=== PATIENT | female | born 1955 | race Caucasian/White ===

== ENCOUNTER 2022-01-30 12:56 | Outpatient (CLI) | payer BC, SELFPAY ==
--- NOTE | 2022-01-30 13:00 | CRLHL7_ITS ---
For Patients: As a result of the 21st Century Cures Act, medical imaging exams and procedure reports are released immediately into your electronic medical record. You may view this report before your referring provider. If you have questions, please contact your health care provider. DUPLEX ULTRASOUND VENOUS INSUFFICIENCY BILATERAL LOWER EXTREMITIES, 01/30/2022 CLINICAL HISTORY: 66-year-old female with varicose veins. COMPARISON: None. TECHNIQUE: Olvera-scale and color spectral Doppler ultrasound imaging of the bilateral lower extremity deep and superficial venous system was performed. FINDINGS: The bilateral deep venous system, including the common femoral, femoral, and popliteal veins are patent and compressible with normal respiratory variation and no filling defect to suggest thrombus. The bilateral posterior tibial veins are patent and compressible as well. Right Lower Extremity: The deep venous system is competent. The greater saphenous vein is patent and compressible from the saphenofemoral junction to the distal calf. The diameters range from 3 mm in the distal thigh to 6 mm at the saphenofemoral junction. The diameters were not obtained in the mid or distal calf. There is very mild reflux at the saphenofemoral junction for 0.8 seconds. In the proximal calf, there is reflux for 2.4 seconds with augmentation. The small saphenous vein is patent and compressible along its length. In the proximal calf, it measures 7 mm. There is no reflux. Perforating veins are noted in the mid calf and measures less than 1 mm in diameter. In the mid femoral vein, it measures 0.1 mm and there is very mild reflux for 0.6 seconds. A second perforating vein in the mid thigh measures 0.1 mm and is competent. A predominantly hypoechoic palpable mass is noted in the medial aspect of the right upper thigh and measures 1.3 x 1.1 x 1.7 cm. Left Lower Extremity: The deep venous system is competent. The greater saphenous vein is patent and compressible along its length. The diameters range from 3 mm in the proximal calf to 7 mm at the saphenofemoral junction. It was not measured in the mid or distal calf. There is reflux at the saphenofemoral junction for 0.6 seconds. The remainder of the greater saphenous vein is competent. The small saphenous vein measures 4 mm in the proximal calf and has reflux for 0.5 seconds. It was not measured in the mid calf, but that vessel is competent. There are two perforating veins noted in the mid left thigh measuring 0.2 to 0.3 mm. Both appear competent. IMPRESSION: 1) Right Lower Extremity: Competent deep venous system. Segmental incompetence in the greater saphenous vein in the proximal calf. 2) Left Lower Extremity: Competent deep venous system. There is reflux of the saphenofemoral junction, but the remainder of the greater saphenous vein appeared competent. Segmental incompetence of the small saphenous vein in the proximal calf. 3) No deep venous thrombus in the bilateral lower extremities. 4) 1.3 x 1.1 x 1.7 round, well-demarcated, hypoechoic mass in the proximal medial thigh, correlating with the palpable lump. The differential diagnosis is broad and includes benign and malignant lesions. MR without and with IV contrast could be considered if further evaluation is desired. MOISE ROWELL M.D. Vascular and Interventional Radiology [email or web address] Transcribed: 10:[address]/Dictated by: Moise Rowell MD @ 01/31/2022 9:53:00 AM (Electronically Signed)
== END 2022-01-30 12:57 | disposition home or self-care (01) ==
LOC: US 12:56
PROVIDERS: PCP Family Medicine; Visit Provider Family Medicine
DX: I83.93 Asymptomatic varicose veins of bilateral lower extremities (principal); R22.41 Localized swelling, mass and lump, right lower limb
CPT/HCPCS: 93970

== ENCOUNTER 2022-05-19 11:35 | Emergency (ER) | payer BC, SELFPAY ==
[2022-05-19 11:47] VITALS: BP 116/79; PULSE 113; RESP 26; TEMP 36.2; O2SAT 94; BMI 31.0
--- NOTE | 2022-05-19 14:08 | ED.SOB ---
HPI - SOB/Dyspnea General Time Seen by Provider: 14:08 Date Seen: 05/19/22 Chief Complaint: Shortness of Breath/Dyspnea Stated Complaint: Difficulty breathing Time Seen by Provider: 05/19/22 14:11 Source: patient, RN notes reviewed and old records reviewed Mode of arrival: ambulatory Limitations: no limitations History of Present Illness HPI Narrative: Sherri Gutierrez is a 66-year-old female with history of COPD who comes to the emergency room for coughing and some shortness of breath. Patient notes the onset of coughing on ThursdayMay 16. With that she has had decreased appetite fevers that have come and gone and fatigue. Patient notes that she has been using Tylenol as well as trying to stay hydrated. In regards to her COPD she did quit smoking 6 years ago and has had need for inhalers and occasional prednisone. She denies any chest pain lower extremity edema history of DVT. Her was recently diagnosed with influenza. She is in agreement to get the triple swab today as well as a chest x-ray. Related Data Home Medications Medication Instructions Recorded Confirmed albuterol sulfate 90 mcg/actuation 2 puff inhalation Q2-4H PRN 01/08/22 05/19/22 aerosol inhaler shortness of breath or wheezing cetirizine 10 mg tablet 10 mg PO .Daily as needed PRN 01/08/22 05/19/22 fluticasone fur. 100 mcg-umeclid 1 inh inhalation DAILY 01/08/22 05/19/22 62.5 mcg-vilant 25 mcg inhalat.powder fluticasone propionate 50 1 spray intranasal .Daily as 01/08/22 05/19/22 mcg/actuation nasal needed PRN spray,suspension multivitamin 1 tab PO QDAY 01/08/22 05/19/22 Previous Rx's Medication Instructions Recorded albuterol sulfate 90 mcg/actuation 1 inh inhalation QID PRN shortness 05/19/22 aerosol inhaler of breath or wheezing #8.5 grams azithromycin 250 mg tablet 250 mg PO DAILY #6 tabs 05/19/22 (Zithromax Z-Panchito) cefdinir 300 mg capsule 300 mg PO BID #14 caps 05/19/22 prednisone 20 mg tablet 20 mg PO DAILY #5 tabs 05/19/22 Allergies Allergy/AdvReac Type Severity Reaction Status Date / Time Penicillins Allergy Mild Familial Verified 05/19/22 11:53 anaphylactic reaction Review of Systems Status of ROS: Reports: 10 or more systems reviewed and unremarkable except as noted in History and below Const: Reports: fever and fatigue; Denies: chills Eyes: Denies: change in vision ENMT: Denies: throat pain, throat swelling or difficulty swallowing Cardio: Reports: shortness of breath with exertion (Occasional with walking); Denies: chest pain or swelling of feet/ankles Resp: Reports: shortness of breath (Occasional with walking), cough and wheezing; Denies: pain on inspiration GI: Reports: diarrhea (Small amount starting yesterday); Denies: abdominal pain, nausea, vomiting or difficulty swallowing : Denies: painful urination Integ/Breast: Denies: rash or redness Neuro: Denies: headache or weakness in extremities Endo: Reports: fatigue Allergy/Immuno: Reports: wheezing; Denies: throat swelling PFSH PFSH Medical History Allergic rhinitis Cognitive deficit following cerebrovascular accident (CVA) Depression Hemorrhage into subarachnoid space of neuraxis (2016) Insomnia Moderate COPD (chronic obstructive pulmonary disease) (2019) Short of breath on exertion Surgical History History of cerebral aneurysm repair (2015) History of cholecystectomy History of eye surgery (1958) Status post ventriculoperitoneal shunt (2015) Family History Father Basal cell carcinoma Coronary artery disease Pacemaker Mother Basal cell carcinoma Aunt Breast cancer Other Colonic polyp Social History Narrative: Does not have regular exercise regimen but walks a lot at work Ex-smoker. 40 pack year, quit 2016 Rarely consumes alcohol [employer], [employer] [place], no kids Smoking Status: Former smoker Little interest or pleasure in doing things: not at all Feeling down, depressed, or hopeless: several days Exam Narrative: Exam Narrative: Sherri is a very pleasant woman in no acute distress. She is clearly congested but nontoxic in appearance. Right eye deviation laterally. Otherwise no scleral icterus. TMs without erythema. Oral cavity is moist mucous membranes no erythema exudate in posterior oropharynx Neck is supple without lymphadenopathy. Heart is with regular rate and rhythm at this time although I do note initial tachycardia. Lungs show some wheezing in the upper lung apices right greater than left. No significant crackles. Abdomen soft nontender lower extremities without edema. Const: Vital Signs, click to edit/add: Vital Signs - 24 hr 05/19/22 11:47 05/19/22 14:20 05/19/22 15:19 Temperature 97.1 F L Pulse Rate [Right Pulse Oximeter] 113 H 111 H 110 H Respiratory Rate 26 H Blood Pressure [Ri ght Upper Arm] 116/79 Pulse Oximetry 94 91 93 Oxygen Delivery Me thod Room Air Room Air Room Air 05/19/22 15:54 05/19/22 17:06 Temperature Pulse Rate [Right Pulse Oximeter] 118 H 111 H Respiratory Rate Blood Pressure [Ri ght Upper Arm] Pulse Oximetry 95 93 Oxygen Delivery Me thod Room Air Room Air Documenting provider has reviewed patient's vital signs: yes Course Course Hospital Course: Patient has agreed to the triple swab and a chest x-ray. Will also start a DuoNeb while in the room. Most likely represents an upper respiratory infection Vital Signs Vital signs: Initial Vital Signs Temperature 97.1 F L 05/19/22 11:47 Temperature Source Temporal Artery Scan 05/19/22 11:47 Pulse Rate 113 H 05/19/22 11:47 Respiratory Rate 26 H 05/19/22 11:47 Blood Pressure 116/79 05/19/22 11:47 Blood Pressure Mean 91 05/19/22 11:47 Blood Pressure Position Sitting 05/19/22 11:47 Pulse Oximetry 94 05/19/22 11:47 Oxygen Delivery Method 05/19/22 11:47 Vital Signs Temperature 97.1 F L 05/19/22 11:47 Pulse Rate 113 H 05/19/22 11:47 Respiratory Rate 26 H 05/19/22 11:47 Blood Pressure 116/79 05/19/22 11:47 Pulse Oximetry 94 05/19/22 11:47 Oxygen Delivery Method 05/19/22 11:47 Temperature 97.1 F L 05/19/22 11:47 Pulse Rate 111 H 05/19/22 17:06 Respiratory Rate 26 H 05/19/22 11:47 Blood Pressure 116/79 05/19/22 11:47 Pulse Oximetry 93 05/19/22 17:06 Oxygen Delivery Method 05/19/22 17:06 MDM - SOB/Dyspnea MDM Narrative Medical decision making narrative: 1. Influenza a-oxygenating well at this time. Would recommend continued monitoring. Ibuprofen or Tylenol as needed for discomfort. Patient feels that the DuoNeb seemed to help her but she declines any DuoNeb at home. She does however request albuterol inhaler which we have given her tonight. 2. Left chest mass -this could represent tumor versus infection. Will place patient both on Zithromax 500 mg today followed by 250 mg daily for 4 days as well as Omnicef 300 mg p.o. b.i.d. x7 days. I did stress to Sherri it is imperative that she follow up for a CT. She declines a CT here in the emergency room tonight. 3. COPD exacerbation-will also place patient on prednisone 20 mg p.o. b.i.d. x5 days. 4. Disposition-patient is discharged home. Recommend returning or seeking medical attention for worsening symptoms and as needed. Medical Records Attestation: I reviewed the patient's medical records. Lab Data Attestation: I reviewed the patient's lab results. Labs: Lab Results 05/19/22 Range/Units 14:33 SARS-CoV-2 (PCR) Negative SARS-CoV-2 (Negative) Influenza Type A (PCR) POSITIVE PCR FLU A A (Negative) Influenza Type B (PCR) Negative PCR FLU B (Negative) RSV (PCR) Negative PCR RSV (Negative) Imaging Data Chest x-ray: Attestation: I have reviewed the pertinent imaging results. My impression: Large mass left lung field Radiologist's impression: Lungs: New opacity overlies the mid left lung and measures approximately 5.8 cm. The right lung is clear. Pleura: No pleural effusion or pneumothorax. Heart and Mediastinum: The cardiomediastinal silhouette is normal. The vessels are unremarkable. Tubing tracking down the left chest wall is stable and likely a NURSE COLLEGE shunt. Bones: Unremarkable. IMPRESSION: Left midlung opacity could be focal infection, but underlying mass is also possible. Further evaluation with CT of the chest with contrast is recommended. Discharge Plan Discharge Clinical Impression: Influenza A, Lung mass, COPD (chronic obstructive pulmonary disease) Patient Disposition: Home, Self-Care Condition: Improved Additional Instructions: Influenza a-push fluids and use ibuprofen or Tylenol as needed for fever or discomfort. Lung mass-while this could represent an infection and we will be treating you with antibiotics, you need to follow-up with your primary MD in order to get a chest CT. This should be done with contrast. Antibiotics will be Zithromax and Omnicef. We will also add prednisone and inhaler. Return to the emergency room if you started experiencing difficulty breathing, cannot take fluids, or have onset of new symptoms. Prescriptions: New albuterol sulfate 90 mcg/actuation HFA aerosol inhaler 1 inh inhalation QID PRN (Reason: shortness of breath or wheezing) Qty: 8.5 2RF azithromycin [Zithromax Z-Panchito] 250 mg tablet 250 mg PO DAILY Qty: 6 0RF Rx Instructions: Take 2 tabs or 500 mg on day 1. On days 2 through 5 take 1 tablet or 250 mg daily. prednisone 20 mg tablet 20 mg PO DAILY Qty: 5 0RF cefdinir 300 mg capsule 300 mg PO BID Qty: 14 0RF No Action fluticasone propionate 50 mcg/actuation spray,suspension 1 spray intranasal .Daily as needed PRN multivitamin Tablet 1 tab PO QDAY cetirizine 10 mg tablet 10 mg PO .Daily as needed PRN albuterol sulfate 90 mcg/actuation HFA aerosol inhaler 2 puff inhalation Q2-4H PRN (Reason: shortness of breath or wheezing) [id number]-rcytfobw 100-62.5-25 mcg blister with device 1 inh inhalation DAILY Follow Up/Referrals: Cheryl Harrison MD [Primary Care Provider] - Stand Alone Forms: [employer] Info Instructions
[2022-05-19 14:20] VITALS: PULSE 111; O2SAT 91
--- NOTE | 2022-05-19 14:33 | CRLHL7_ITS ---
For Patients: As a result of the Century Cures Act, medical imaging exams and procedure reports are released immediately into your electronic medical record. You may view this report before your referring provider. If you have questions, please contact your health care provider. INDICATION: Cough. TECHNIQUE: Chest 1 views. COMPARISON: Chest x-ray from 06/11/2018. FINDINGS: Lungs: New opacity overlies the mid left lung and measures approximately 5.8 cm. The right lung is clear. Pleura: No pleural effusion or pneumothorax. Heart and Mediastinum: The cardiomediastinal silhouette is normal. The vessels are unremarkable. Tubing tracking down the left chest wall is stable and likely a EEG TECH shunt. Bones: Unremarkable. IMPRESSION: Left midlung opacity could be focal infection, but underlying mass is also possible. Further evaluation with CT of the chest with contrast is recommended. Dictated by Anish Gutierres MD @ 05/19/2022 4:24:29 PM (Electronically Signed)
[2022-05-19] MEDS: IPRAT-ALBUT 0.5-2.5 MG/3 ML NEB 1 NEB IH (14:41)
[2022-05-19 15:19] VITALS: PULSE 110; O2SAT 93
[2022-05-19 15:27] LABS: PCR FLU A POSITIVE PCR FLU A (Negative); PCR FLU B Negative PCR FLU B (Negative); PCR RSV Negative PCR RSV (Negative)
[2022-05-19 15:29] LABS: SARS PCR* Negative SARS-CoV-2 (Negative)
[2022-05-19 15:54] VITALS: PULSE 118; O2SAT 95
[2022-05-19 17:06] VITALS: PULSE 111; O2SAT 93
== END 2022-05-19 17:07 | disposition home or self-care (01) ==
PROVIDERS: Emergency Provider Family Medicine; PCP Family Medicine
DX: J09.X2 Influenza due to identified novel influenza A virus with other respiratory manifestations (principal); J44.1 Chronic obstructive pulmonary disease with (acute) exacerbation; R22.2 Localized swelling, mass and lump, trunk
CPT/HCPCS: 71045; 87502; 87634; 87635; 94640; 99284

== ENCOUNTER 2022-06-03 14:53 | Outpatient (CLI) | payer BC, SELFPAY ==
--- OUTSIDE RECORDS SUMMARY | 2022-06-03 14:56 | XMS_ITS | Clinical Summary ---
:1955 External Reference #:RESEARCH Author Organization [facility] [place] [address] Care Team Providers Name Role Phone Cheryl Harrison MD Primary Care Provider [phone] Allergies Active Allergy Reactions Severity Noted Date Comments Penicillins Other - Describe In 12/07/2010 Dad and brother are Comment Field allergic Medications Medication Sig Dispensed Refills Start Date End Date Status aspirin chewable 81 Take 1 tablet by 0 01/30/2016 Active mg chewable tablet mouth once daily with a meal. acetaminophen Take 2 tablets by 0 02/06/2016 Active (TYLENOL) 325 mg mouth every 4 hours tablet if needed. Max acetaminophen dose: 4000mg in 24 hrs. sertraline (ZOLOFT) Take 1 tablet by 0 08/22/2016 Active 50 mg tablet mouth once daily. albuterol (PROAIR Inhale 2 Puffs by 0 Active RESPICLICK) 90 mouth once daily if mcg/actuation INHALER needed. cetirizine (ZYRTEC) Take 10 mg by mouth 0 Active 10 mg tablet once daily. cholecalciferol Take 1,000 Units by 0 Active (VITAMIN D) 1,000 mouth once daily. unit capsule cyanocobalamin 1,000 Take 1,000 mcg by 0 Active mcg tablet mouth once daily. fluticasone (50 mcg Inhale 1 Rankin in 0 Active per actuation) nasal the nostril(s) once solution (FLONASE) daily. 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 Acute encephalopathy 01/10/2016 Immunizations Name Administration Dates Next Due Influenza, IIV3 (Age >=3 years) 05/31/2016, 04/27/2012 Tdap 08/22/2016 Family History Medical History Relation Name Comments Other Other No family histor y of brain aneurysms Relation Name Status Comments Other Social History Tobacco Use Types Packs/Day Years Used Date Smoking Tobacco: Former Cigarettes 0.8 Quit : 01/12/2016 Smokeless Tobacco: Never Tobacco Cessation: Counseling Given: Yes Comments: 3/4 pack per day, unable to fi nd any tobacco cessation counselor notes from [facility] hospitalization Alcohol Use Standard Drinks/Week Comments No 0 (1 standard drink = 0.6 oz pure alcoho l) Sex Assigned at Date Recorded Not on file Obstetrics History Last Filed Vital Signs Vital Sign Reading Time Taken Comments Blood Pressure 112/80 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 Pulse 70 10/26/2018 12:00 PM CDT Temperature 36.7 ??C (98 ??F) 08/22/2016 11:45 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 Respiratory Rate 18 10/26/2018 12:00 PM CDT Oxygen Saturation 93% 10/26/2018 12:00 PM CDT Inhaled Oxygen Concentration - - Weight 75.3 kg (166 lb) 10/26/2018 12:00 PM CDT Height 157.5 cm (5' 2) 10/26/2018 12:00 PM CDT Body Mass Index 30.36 10/26/2018 12:00 PM CDT Plan of Treatment Health Maintenance Due Date Last Done Comments HIV for age 15-65 1972 Hepatitis C screening for age 0409/24/1975 18-79 Colonoscopy through age 75 2002 Lipids for age 45-75 2002 Mammogram for age 45-75 2002 Zoster (shingles) series for age 0409/24/2007 50+ (1 of 2) BMI (ht and wt on same day) for 08/22/2017 08/22/2016, 02/2017, age 18+ 04/14/2016, Additional history exists Depression screening for age 12+ 10/27/2019 10/26/2018, 02/2017, 10/31/2016, Additional history exists COVID-19 vaccine series (3 - 12/06/2020 10/11/2020, 021 Booster for Moderna series) Influenza for age 50-64 02/20/2022 05/31/2016, 04/27/2012 Pap test for age 21-65 01/10/2025 01/10/2022, 01/10/2022, 08/08/2016, Additional history exists Tetanus booster 08/22/2026 08/22/2016 Tdap Completed 08/22/2016 Medical Devices Implanted Type Area Electrical Project Engineer Device Shelf Model / Identifier Expiration Serial / Date Lot Shunt Kimball Hole Cover 15mm Left: [id number] / Implanted: Qty: 1 on 01/25/2016 by Artemio Galicia MD at [facility] Cranium / Explanted: at [facility] (Quantity not on file) Description: SHUNT KRISTI HOLE COVER 15MM Results Not on filefrom Last 3 Months Insurance Payer Benefit Plan / Subscriber ID Effective Dates Phone Addre ss Type Group [employer] xxxxARCH 2016-Prese [address] [place] [address] [id number] [place] [address] BLUE CROSS BLUE CROSS OF [id number] 2017-Presen [address] [address] [place] [address] (Work) [id number] MattSherri bañuelos Research Self 1955 [address] (Home) S [phone] [place], [place] (Work) [id number] Advance Directives Latest Code Status on File Code Status Date Activated Date Inactivated Comments Full Code 01/30/2016 2:16 PM 02/07/2016 1:10 PM Question Answer Comments Code Status Discussion: Discussed Per Existing Order Code Status History Code Status Date Activated Date Inactivated Comments Full Code 01/24/2016 9:01 AM 01/30/2016 2:16 PM Full Code 01/10/2016 10:04 PM 01/24/2016 9:01 AM Full Code 01/10/2016 1:07 PM 01/10/2016 10:04 PM Unable to h ave detailed discussion at this time giv en encephalopathy. Question Answer Comments Code Status Discussion: Not Discussed Care Teams Healthcare Recruiter Relationship Specialty Start Date End Date Cheryl Harrison MD PCP - General Family Practice 05/22/181999 [place] [address]
--- NOTE | 2022-06-03 15:00 | CRLHL7_ITS ---
For Patients: As a result of the Century Cures Act, medical imaging exams and procedure reports are released immediately into your electronic medical record. You may view this report before your referring provider. If you have questions, please contact your health care provider. BILATERAL SCREENING MAMMOGRAM WITH COMPUTER-AIDED DETECTION AND TOMOSYNTHESIS TECHNIQUE: CC and MLO views were obtained. These mammographic images have been obtained using full-field digital technique. These mammographic images were interpreted with the benefit of computer-aided detection. Breast Tomosynthesis was used in this interpretation. COMPARISON FILM: 03/15/21, 03/06/20, 03/03/19. FINDINGS: There are scattered areas of fibroglandular density IMPRESSION: There is no radiographic evidence for malignancy. ASSESSMENT: BI-RADS Category 1: Negative RECOMMENDATION: Routine screening mammogram in 1 year. A lay language report of this examination will be provided to the patient. Antoni Byers M.D. Diagnostic Radiologist [email or web address] Transcribed: 3:40 pm DW/Dictated by: Antoni Byers MD @ 06/04/2022 12:32:00 PM (Electronically Signed)
== END 2022-06-03 14:54 | disposition home or self-care (01) ==
LOC: MAMMO 14:54
PROVIDERS: PCP Family Medicine; Visit Provider Family Medicine
DX: Z12.31 Encounter for screening mammogram for malignant neoplasm of breast (principal)
CPT/HCPCS: 77063; 77067

== ENCOUNTER 2022-06-09 08:48 | Outpatient (CLI) | payer BC, SELFPAY ==
--- NOTE | 2022-06-09 09:00 | CRLHL7_ITS ---
For Patients: As a result of the Century Cures Act, medical imaging exams and procedure reports are released immediately into your electronic medical record. You may view this report before your referring provider. If you have questions, please contact your health care provider. Indication: LEFT LUNG MASS ? SEEN ON CHEST XRAY HX OF SMOKING, COPD Technique: Post contrast CT chest. 81 cc Isovue 370 intravenous contrast. Please note that all CT scans at this facility use dose modulation, iterative reconstruction, and/or weight-based dosing when appropriate to reduce radiation dose to as low as reasonably achievable. Comparison: Chest x-ray 05/19/2022 Findings: There is a large mass within the lingula measuring approximately 6.9 x 6.3 cm. Ill-defined parenchymal densities surround this mass. Left hilar and mediastinal adenopathy with lymph nodes measuring up to 1.8 cm. Chronic underlying granulomatous disease with a few scattered calcified lymph nodes centrally. The no axillary adenopathy. Breast tissue normal. No pleural effusion or pericardial effusion. COPD/emphysema. Calcified granuloma in the left lower lobe. No fracture. Suspicious subtle intrahepatic hypodense masses are present measuring up to 1.9 cm. Adrenal glands are normal. Postop changes cholecystectomy. Catheter device upper abdomen. Impression: Large lingular mass with mediastinal and left hilar adenopathy highly suspicious for malignancy. Subtle hypodense masses within the liver measuring up to 1.9 cm, suspicious for metastatic disease. Please note that all CT scans at this facility use dose modulation, iterative reconstruction, and/or weight-based dosing when appropriate to reduce radiation dose to as low as reasonably achievable. Dictated by Antoni Byers MD @ 06/09/2022 10:59:09 AM (Electronically Signed)
[2022-06-09 09:19] LABS: Creatinine* 0.6 mg/dL (0.5-1.5); Estimated Glomerular Filt Rate 100 ml/min
== END 2022-06-09 08:49 | disposition home or self-care (01) ==
LOC: CT 08:50
PROVIDERS: PCP Family Medicine; Visit Provider Family Medicine
DX: R91.8 Other nonspecific abnormal finding of lung field (principal); R16.0 Hepatomegaly, not elsewhere classified
CPT/HCPCS: 36415; 71260; 82565; Q9967

== ENCOUNTER 2022-08-15 19:47 | Emergency (ER) | payer BC, SELFPAY ==
[2022-08-15] VITALS (16 sets, daily range): BP systolic 115–159; BP diastolic 78–92; PULSE 81–98; RESP 32; TEMP 37.2; O2SAT 91–97; BMI 29.2
--- NOTE | 2022-08-15 20:18 | ED_ITS ---
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 No cough or shortness of breath. No fever or chills. 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 Pt states that her pain is normally under reasonable control. Pt took 2.5 mg of oxycodone and several doses of Tylenol prior to coming in pain is severe but does not radiate. Related Data Home Medications Medication Instructions Recorded Confirmed albuterol sulfate 90 mcg/actuation 2 puff inhalation Q2-4H PRN 01/08/22 08/13/22 aerosol inhaler shortness of breath or wheezing cetirizine 10 mg tablet 10 mg PO .Daily as needed PRN 01/08/22 08/13/22 fluticasone propionate 50 1 spray intranasal .Daily as 01/08/22 08/13/22 mcg/actuation nasal needed PRN spray,suspension multivitamin 1 tab PO QDAY 01/08/22 08/13/22 fluticasone fur. 100 mcg-umeclid 1 inh inhalation DAILY 06/24/22 08/13/22 62.5 mcg-vilant 25 mcg inhalat.powder ondansetron HCl 8 mg tablet 8 mg PO Q8-12H PRN 08/13/22 08/13/22 prochlorperazine maleate 10 mg 5 mg PO Q6H PRN 08/13/22 08/13/22 tablet Allergies Allergy/AdvReac Type Severity Reaction Status Date / Time Penicillins Allergy Mild Familial Verified 08/15/22 19:56 anaphylactic reaction Review of Systems Status of ROS: Reports: 10 or more systems reviewed and unremarkable except as noted in History and below [facility] Medical History Allergic rhinitis Cognitive deficit following cerebrovascular accident (CVA) Depression Hemorrhage into subarachnoid space of neuraxis (2016) Insomnia Moderate COPD (chronic obstructive pulmonary disease) (2019) Short of breath on exertion Small cell lung cancer Surgical History History of cerebral aneurysm repair (2016) History of cholecystectomy History of eye surgery (1959) Status post ventriculoperitoneal shunt (2015) Family History Father Basal cell carcinoma Coronary artery disease Pacemaker Mother Basal cell carcinoma Aunt Breast cancer Other Colonic polyp Social History Narrative: Does not have regular exercise regimen but walks a lot at work Ex-smoker. 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 EYES: No scleral icterus. LYMPH: No supraclavicular or cervical lymphadenopathy. SKIN: Visible skin seen during exam normal or with benign process only. EXT: No dependent lower extremity pedal edema. HEART: Regular rate and rhythm with no murmurs, rubs, or gallops. LUNGS: Clear to auscultation bilaterally with no crackles or wheezes. Chest wall is tender in the anterior and midaxillary line on the left. ABD: Soft, non tender, non distended. PSYCH: Good eye contact, speech is not pressured. Const: Vital Signs, click to edit/add: Vital Signs - 24 hr 08/15/22 19:56 08/15/22 21:30 08/15/22 21:31 Temperature 99 F Pulse Rate 81 81 Pulse Rate [Pulse Oximeter] 96 Respiratory Rate 32 H Blood Pressure 128/91 H Blood Pressure [Ri ght Upper Arm] 145/78 H Pulse Oximetry 97 93 94 Oxygen Delivery Me thod Room Air 08/15/22 21:45 Temperature Pulse Rate 81 Pulse Rate [Pulse Oximeter] Respiratory Rate Blood Pressure Blood Pressure [Ri ght Upper Arm] Pulse Oximetry 94 Oxygen Delivery Me thod Course Course Hospital Course: Pt seen and examined. CT chest ordered. IV dilaudid given. Reevaluation(s) Reevaluation #1: CT shows diffuse malignancy which is chronic as well as an acute 8th rib fracture without pneumothorax. Time: 23:42 Vital Signs Vital signs: Initial Vital Signs Temperature 99 F 08/15/22 19:56 Temperature Source Temporal Artery Scan 08/15/22 19:56 Pulse Rate 96 08/15/22 19:56 Pulse Rhythm 08/15/22 19:56 Respiratory Rate 32 H 08/15/22 19:56 Blood Pressure 145/78 H 08/15/22 19:56 Blood Pressure Mean 100 08/15/22 19:56 Blood Pressure Position Sitting 08/15/22 19:56 Pulse Oximetry 97 08/15/22 19:56 Oxygen Delivery Method 08/15/22 19:56 Vital Signs Temperature 99 F 08/15/22 19:56 Pulse Rate 96 08/15/22 19:56 Respiratory Rate 32 H 08/15/22 19:56 Blood Pressure 145/78 H 08/15/22 19:56 Pulse Oximetry 97 08/15/22 19:56 Oxygen Delivery Method 08/15/22 19:56 Temperature 99 F 08/15/22 19:56 Pulse Rate 81 08/15/22 21:45 Respiratory Rate 32 H 08/15/22 19:56 Blood Pressure 128/91 H 08/15/22 21:31 Pulse Oximetry 94 08/15/22 21:45 Oxygen Delivery Method 08/15/22 19:56 Medical Decision Making MDM Narrative Medical decision making narrative: Pt is a 66 year old woman who has a known history of metastatic small cell lung cancer who sneezed and fractured a rib. No pneumothorax, pneumonia or acute VT. Pt treated with dilaudid and feeling better. She has oxycodone at home and will continue her outpt treatment. Differential Diagnosis Differential Diagnosis: Rib Fracture, Pulmonary Emboism, Pneumonia, AMI, Chest Wall strain Lab Data Labs: Lab Results 08/15/22 08/15/22 08/15/22 Range/Units 19:30 19:30 22:07 WBC 14.06 H (4.50-11.00) K/uL RBC 4.46 (4.00-5.20) m/uL Hgb 11.9 L (12.0-16.0) gm/dL Hct 38.4 (33.0-51.0) % MCV 86 (80-100) fL MCH 27 (26-34) pg MCHC 31 L (32-36) gm/dL RDW Coeff of Ivone 14.4 (11.5-15.5) % Plt Count 619 H (140-440) K/uL Neut % (Auto) 75.8 H (42.0-72.0) % Lymph % (Auto) 8.9 L (20-44) % [place] % (Auto) 5.3 (0.0-11.0) % Eos % (Auto) 9.5 H (0.0-7.0) % Baso % (Auto) 0.2 (0.0-3.0) % Neut # (Auto) 10.70 H (1.7-7.0) K/uL Lymph # (Auto) 1.30 (0.90-2.90) K/uL [place] # (Auto) 0.70 (0.00-0.90) K/UL Eos # (Auto) 1.30 H (0.00-0.50) K/uL Baso # (Auto) 0.00 (0.00-0.30) K/uL Sodium 139 (135-149) mmol/L Potassium 4.6 (3.6-5.1) mmol/L Chloride 104 (96-114) mmol/L Carbon Dioxide 29 (20-32) mmol/L BUN 22 (7-30) mg/dL Creatinine 0.7 (0.5-1.5) mg/dL Estimated Creat Clear 47.01 Estimated GFR 97 ml/min Glucose 130 H (60-115) mg/dL Calcium 9.2 (8.4-10.6) mg/dL Total Bilirubin 0.4 (0.1-1.5) mg/dL AST 22 (12-35) U/L ALT 19 (4-35) U/L Alkaline Phosphatase 183 H (40-150) U/L Troponin I < 0.01 L (0.01-0.04) ng/mL Total Protein 7.5 (6.0-8.3) g/dL Albumin 3.9 (3.3-5.0) g/dL Discharge Plan Discharge Clinical Impression: Fracture of rib Patient Disposition: Home, Self-Care Condition: Stable Instructions: Rib Fracture (ED) Additional Instructions: Continue pain control and follow up as previous Activity Level: Activity as Tolerated Discharge Diet: Regular Prescriptions: No Action fluticasone propionate 50 mcg/actuation spray,suspension 1 spray intranasal .Daily as needed PRN multivitamin Tablet 1 tab PO QDAY cetirizine 10 mg tablet 10 mg PO .Daily as needed PRN albuterol sulfate 90 mcg/actuation HFA aerosol inhaler 2 puff inhalation Q2-4H PRN (Reason: shortness of breath or wheezing) [id number] 100-62.5-25 mcg blister with device 1 inh inhalation DAILY ondansetron HCl 8 mg tablet 8 mg PO Q8-12H PRN prochlorperazine maleate 10 mg tablet 5 mg PO Q6H PRN Follow Up/Referrals: Cheryl Harrison MD [Primary Care Provider] - Stand Alone Forms: [employer] Info Instructions
--- NOTE | 2022-08-15 20:24 | CRLHL7_ITS ---
For Patients: As a result of the Century Cures Act, medical imaging exams and procedure reports are released immediately into your electronic medical record. You may view this report before your referring provider. If you have questions, please contact your health care provider. INDICATION: Left rib and chest wall pain after sneezing, lung cancer status post radiation therapy today TECHNIQUE: CT chest pulmonary PE protocol acquired with 95 cc Isovue 370 IV contrast. COMPARISON: None FINDINGS: Cardiovascular structures: Normal vascular enhancement of the pulmonary arteries, no sign of pulmonary embolism. Heart size is normal. No sign of aneurysm in the thoracic aorta. Mediastinum and suman: 1.0 cm pretracheal lymph node. AP window lymph nodes measuring up to 2.0 cm. 1.2 cm subcarinal lymph node. Small hiatal hernia. Calcified mediastinal and left hilar lymph nodes. Lungs: Emphysema. 7.3 x 6.8 x 6.2 cm mass in the left upper lobe, previously 6.9 x 6.3 x 4.7 cm. This extends from the left hilum to the left lateral chest wall. There is some surrounding airspace opacities which are new compared to the prior exam. Calcified granuloma left lower lobe. Pleura and pericardium: No effusions. Chest wall and axilla: No mass or adenopathy. Upper abdomen: Left-sided LAWN CARE SPECIALIST shunt seen in the subcutaneous fat of the left anterior chest and abdominal wall. A portion of the catheter is also seen in the left upper quadrant. Ill-defined 2.2 x 2.2 cm hypodense mass at the hepatic dome. 1.7 cm ill-defined hypodense mass in the right hepatic lobe. Note that the PE protocol does not allow for good evaluation of liver lesions. Bones: There is a lytic lesion within the left lateral 6th rib which is new compared to the prior exam. New 1.4 x 1.2 cm lytic lesion in the T7 vertebral body. There is an acute, minimally displaced fracture of the left posterolateral 8th rib. IMPRESSION: No pulmonary embolism. Acute, minimally displaced left posterior lateral 8th rib fracture. No pneumothorax. Interval increase in size of a large left upper lobe mass extending from the hilum to the left lateral chest wall. New patchy surrounding airspace opacities may represent changes from radiation, local spread of disease, or infection. New lytic lesions in the left lateral 6th rib and T7 vertebral body. Mediastinal adenopathy measuring up to 2.0 cm in size, slightly increased compared to the prior exam. Hypodense lesions in the liver. These findings are all consistent with increasing metastatic disease. Please note that all CT scans at this facility use dose modulation, iterative reconstruction, and/or weight-based dosing when appropriate to reduce radiation dose to as low as reasonably achievable. Dictated by Breanna Leonard MD @ 08/15/2022 11:29:41 PM (Electronically Signed)
[2022-08-15] MEDS: HYDROmorphone 0.5 mg/0.5 ml inj IVP ×2 (20:37→22:19)
[2022-08-15 21:15] LABS: Basophils Percent Auto 0.2 % (0.0-3.0); Eosinophils Percent Auto 9.5 % (0.0-7.0); Hematocrit 38.4 % (33.0-51.0); Hemoglobin* 11.9 gm/dL (12.0-16.0); Immature Granulocytes Pct Auto 0.3 %; Lymphocytes Percent Auto 8.9 % (20-44); Mean Corpuscular HGB Conc 31 gm/dL (32-36); Mean Corpuscular Hemoglobin 27 pg (26-34); Mean Corpuscular Volume 86 fL (80-100); Monocytes Percent Auto 5.3 % (0.0-11.0); Neutrophils Percent Auto 75.8 % (42.0-72.0); Platelet Count* 619 K/uL (140-440); RDW Coefficient of Variation % 14.4 % (11.5-15.5); Red Blood Count 4.46 m/uL (4.00-5.20); White Blood Count* 14.06 K/uL (4.50-11.00)
[2022-08-15 21:34] LABS: Albumin* 3.9 g/dL (3.3-5.0); Chloride* 104 mmol/L (96-114); Potassium* 4.6 mmol/L (3.6-5.1); Sodium* 139 mmol/L (135-149)
[2022-08-15 21:37] LABS: Alanine Aminotransferase* 19 U/L (4-35); Alkaline Phosphatase* 183 U/L (40-150); Aspartate Amino Transferase* 22 U/L (12-35); Bilirubin Total* 0.4 mg/dL (0.1-1.5); Blood Urea Nitrogen* 22 mg/dL (7-30); Carbon Dioxide* 29 mmol/L (20-32); Creatinine* 0.7 mg/dL (0.5-1.5); Est. Creatinine Clearance* 47.01; Estimated Glomerular Filt Rate 97 ml/min; Glucose* 130 mg/dL (60-115); Slide Review Reflex No; Total Protein* 7.5 g/dL (6.0-8.3)
[2022-08-15 21:38] LABS: Calcium* 9.2 mg/dL (8.4-10.6)
[2022-08-15 22:43] LABS: Troponin I* < 0.01 ng/mL (0.01-0.04)
[2022-08-16] VITALS: PULSE 83; O2SAT 96
== END 2022-08-16 00:12 | disposition home or self-care (01) ==
PROVIDERS: Emergency Provider Internal Medicine; PCP Family Medicine
DX: S22.32XA Fracture of one rib, left side, initial encounter for closed fracture (principal)
CPT/HCPCS: 36415; 71260; 80053; 84484; 85025; 93005; 96374; 96376; 99283; 99284; J1170; Q9967

== ENCOUNTER 2022-09-18 13:22 | Emergency (ER) | payer BC, SELFPAY ==
--- NOTE | 2022-09-18 13:22 | ED.NURSE ---
Research Group Director responded to [employer] page in [facility] on this patient. Arrived with patient awake, but reports of SpO2 58%, HR 130. Patient was receiving second treatment/infusion and experienced onset chest pain/shortness of breath after 10 minutes of treatment. Staff note significant coughing episode. They have patient on 10L O2 via NRB. Patient trasferred to ED at this time, RT has patient on combined duoneb/albuterol neb treatment. RR 30, patient somnolent. 1328 - initiated CPAP tx by RT, CPAP10/80%.
--- NOTE | 2022-09-18 13:39 | CRLHL7_ITS ---
For Patients: As a result of the Century Cures Act, medical imaging exams and procedure reports are released immediately into your electronic medical record. You may view this report before your referring provider. If you have questions, please contact your health care provider. INDICATION: [id number]. TECHNIQUE: Chest 1 views. COMPARISON: CT, August 15, 2022. FINDINGS: Cardiovascular and mediastinum: Heart size and vasculature are normal in caliber and appearance. Lungs and pleural spaces: Persistent lingular mass. No sign of pleural effusion. No pneumothorax. Bones and soft tissues: No significant findings. IMPRESSION: Persistent lingular mass. No new acute cardiopulmonary abnormality. Dictated by Boni Paulson MD @ 09/18/2022 2:33:59 PM (Electronically Signed)
[2022-09-18 13:59] VITALS: BP 200/115; PULSE 120; RESP 20; TEMP 36.6; O2SAT 99; BMI 24.2
[2022-09-18 14:12] LABS: Basophils Absolute Auto 0.01 K/uL (0.00-0.30); Basophils Percent Auto 0.1 % (0.0-3.0); Eosinophils Absolute Auto 0.01 K/uL (0.00-0.50); Eosinophils Percent Auto 0.1 % (0.0-7.0); Hematocrit 34.3 % (33.0-51.0); Hemoglobin* 10.3 gm/dL (12.0-16.0); Immature Granulocytes Abs Auto 0.05 K/uL (0.00-0.30); Immature Granulocytes Pct Auto 0.5 %; Mean Corpuscular HGB Conc 30 gm/dL (32-36); Mean Corpuscular Hemoglobin 27 pg (26-34); Mean Corpuscular Volume 88 fL (80-100); Monocytes Percent Auto 0.9 % (0.0-11.0); Neutrophils Percent Auto 91.4 % (42.0-72.0); Platelet Count* 441 K/uL (140-440); Red Blood Count 3.88 m/uL (4.00-5.20); White Blood Count* 9.25 K/uL (4.50-11.00)
[2022-09-18 14:17] LABS: Slide Review Reflex No
[2022-09-18 14:23] LABS: Troponin, Point-of-Care* 0.01 ng/ml (0.01-0.04)
[2022-09-18 14:34] LABS: Albumin* 3.7 g/dL (3.3-5.0)
[2022-09-18 14:35] LABS: Chloride* 104 mmol/L (96-114); Potassium* 5.1 mmol/L (3.6-5.1); Sodium* 137 mmol/L (135-149)
[2022-09-18 14:37] LABS: Alanine Aminotransferase* 19 U/L (4-35); Alkaline Phosphatase* 193 U/L (40-150); Aspartate Amino Transferase* 20 U/L (12-35); Bilirubin Direct* 0.1 mg/dL (0.0-0.5); Bilirubin Total* 0.4 mg/dL (0.1-1.5); Creatinine* 0.5 mg/dL (0.5-1.5); Est. Creatinine Clearance* 53.21; Estimated Glomerular Filt Rate 105 ml/min; Total Protein* 6.8 g/dL (6.0-8.3)
[2022-09-18 14:38] LABS: Blood Urea Nitrogen* 13 mg/dL (7-30); Calcium* 8.7 mg/dL (8.4-10.6); Carbon Dioxide* 25 mmol/L (20-32); Glucose* 191 mg/dL (60-115)
--- NOTE | 2022-09-18 14:39 | ED.GENADULT ---
HPI - General Adult General Chief complaint: Altered Mental Status Stated complaint: From [facility] ([facility] Time Seen by Provider: 09/18/22 13:25 History of Present Illness HPI narrative: This 66-year-old female is a cancer patient and was in the infusion center when she began to be short of breath with associated coughing. A code blue was called because of this. She never did lose consciousness or her airway and her heart rate and rhythm was intact. She did come here then for further evaluation and treatment. She is placed on CPAP to assist in her breathing. She has a history of lung cancer. She arrives here with normal vital signs and feeling better while on CPAP. Related Data Home Medications Medication Instructions Recorded Confirmed albuterol sulfate 90 mcg/actuation 2 puff inhalation Q2-4H PRN 01/08/22 09/02/22 aerosol inhaler shortness of breath or wheezing cetirizine 10 mg tablet 10 mg PO .Daily as needed PRN 01/08/22 09/02/22 fluticasone propionate 50 1 spray intranasal .Daily as 01/08/22 09/02/22 mcg/actuation nasal needed PRN spray,suspension multivitamin 1 tab PO QDAY 01/08/22 09/02/22 prochlorperazine maleate 10 mg 5 mg PO Q6H PRN 08/13/22 09/02/22 tablet acetaminophen 500 mg tablet 500 mg PO Q4-6H PRN 08/27/22 09/02/22 (Tylenol Extra Strength) fluticasone fur. 100 mcg-umeclid 1 inh inhalation DAILY 08/27/22 09/02/22 62.5 mcg-vilant 25 mcg inhalat.powder (Trelegy Ellipta) naproxen sodium 220 mg capsule 220 mg PO BID PRN 08/27/22 09/02/22 (Aleve) sennosides 8.6 mg tablet (Senna 8.6 mg PO BID PRN 08/27/22 09/02/22 Lax) oxycodone 5 mg tablet 2.5 mg PO Q4H PRN severe pain 08/28/22 09/02/22 loperamide 2 mg capsule (Imodium 2 mg PO Q6H PRN 09/02/22 09/02/22 A-D) Previous Rx's Medication Instructions Recorded oxycodone 5 mg tablet 2.5 mg PO Q6H PRN pain #30 tabs 08/28/22 sertraline 25 mg tablet See Rx Instructions PO QDAY #60 09/02/22 tabs ondansetron HCl 8 mg tablet 8 mg PO Q8H PRN nausea and 09/18/22 vomiting #40 tabs Allergies Allergy/AdvReac Type Severity Reaction Status Date / Time Penicillins Allergy Mild Familial Verified 09/02/22 16:27 anaphylactic reaction Review of Systems Status of ROS: Reports: 10 or more systems reviewed and unremarkable except as noted in History and below Narrative: Constitutional: No fevers, no weight gain or loss. Eyes: No discharge. No vision changes. HENT: No congestion, no sore throat, no ear pain. Cardiovascular: No chest pain, no palpitations. Respiratory: Shortness of breath and coughing. Gastrointestinal: No abdominal pain, no vomiting, no diarrhea. Genitourinary: No dysuria, no hematuria. Musculoskeletal: Normal range of motion. Skin: No rashes, no pruritis. Neurological: No dizziness, weakness, sensory change, speech change. Endo/Heme/Allergies: No bruising or bleeding. No polydipsia. Pysch: no suicidality, no anxiety, no insomnia. All other systems reviewed and are negative. [facility] Medical History (Updated 09/18/22 @ 16:25 by Luis F Portillo MD) Allergic rhinitis ?J30.9 - Allergic rhinitis, unspecified (ICD-10) Bone metastases ?C79.51 - Secondary malignant neoplasm of bone (ICD-10) Cancer associated pain ?G89.3 - Neoplasm related pain (acute) (chronic) (ICD-10) Cognitive deficit following cerebrovascular accident (CVA) ?I69.319 - Unspecified symptoms and signs involving cognitive functions following cerebral infarction (ICD-10) Constipation ?K59.00 - Constipation, unspecified (ICD-10) Depression ?F32.A - Depression, unspecified (ICD-10) Hemorrhage into subarachnoid space of neuraxis (2016) ?I60.9 - Nontraumatic subarachnoid hemorrhage, unspecified (ICD-10) Hyponatremia ?E87.1 - Hypo-osmolality and hyponatremia (ICD-10) Insomnia ?G47.00 - Insomnia, unspecified (ICD-10) Liver metastases ?C78.7 - Secondary malignant neoplasm of liver and intrahepatic bile duct (ICD-10) Metastasis to lymph nodes ?C77.9 - Secondary and unspecified malignant neoplasm of lymph node, unspecified (ICD-10) Moderate COPD (chronic obstructive pulmonary disease) (2019) ?J44.9 - Chronic obstructive pulmonary disease, unspecified (ICD-10) Short of breath on exertion ?R06.02 - Shortness of breath (ICD-10) Surgical History History of cerebral aneurysm repair (2016) ?Z98.890 - Other specified postprocedural states (ICD-10) ?Z86.79 - Personal history of other diseases of the circulatory system (ICD-10) History of cholecystectomy ?Z90.49 - Acquired absence of other specified parts of digestive tract (ICD-10) History of eye surgery (195) ?Z98.890 - Other specified postprocedural states (ICD-10) Status post ventriculoperitoneal shunt (2016) ?Z98.2 - Presence of cerebrospinal fluid drainage device (ICD-10) Family History Father Basal cell carcinoma Coronary artery disease Pacemaker Mother Basal cell carcinoma Aunt Breast cancer Other Colonic polyp Social History Narrative: Does not have regular exercise regimen but walks a lot at work Ex-smoker. 40 pack year, quit 2016 Rarely consumes alcohol [employer], [facility], no kids Smoking Status: Unknown if ever smoked Do you use any of these nicotine containing products: None Second hand tobacco smoke exposure: No How often do you have a drink containing alcohol: never How often do you have six or more drinks on one occasion: Never AUDIT-C Alcohol total score: 0 Non-prescribed substance use: denies use Little interest or pleasure in doing things: nearly every day Feeling down, depressed, or hopeless: nearly every day service: No Exam Narrative: Exam Narrative: Constitutional: Well-developed, well-nourished, no acute distress. HEENT: Normocephalic, atraumatic. Neck: Normal range of motion. Nontender. Supple. Heart: Regular. No murmurs. Normal rate. Intact distal pulses. Lungs: Decreased air movement. No chest discomfort. Abdomen: Normal bowel sounds. Nontender. No rebound tenderness. Genitalia: Deferred. Back: No midline tenderness. Normal range of motion. Extremities: Normal range of motion. No injury. Skin: Intact. No rash. Warm. No erythema or pallor. Neurologic: No altered sensation. No weakness. Alert and oriented. Psychiatric: No suicidality. No anxiety or depression. No insomnia. Nursing notes and vitals signs are reviewed. Const: Vital Signs, click to edit/add: Vital Signs - 24 hr 09/18/22 13:59 09/18/22 14:11 09/18/22 15:43 Temperature 97.8 F Pulse Rate [Right Pulse Oximeter] 120 H 101 H Respiratory Rate 20 Blood Pressure [Ri ght Upper Arm] 200/115 H 127/84 Pulse Oximetry 99 95 Oxygen Delivery Me thod Room Air Room Air Fraction of Inspir ed Oxygen 40 Course Vital Signs Vital signs: Initial Vital Signs Temperature 97.8 F 09/18/22 13:59 Temperature Source Temporal Artery Scan 09/18/22 13:59 Pulse Rate 120 H 09/18/22 13:59 Respiratory Rate 20 09/18/22 13:59 Blood Pressure 200/115 H 09/18/22 13:59 Blood Pressure Mean 143 09/18/22 13:59 Blood Pressure Position Supine 09/18/22 13:59 Pulse Oximetry 99 09/18/22 13:59 Oxygen Delivery Method Room Air 09/18/22 13:59 Vital Signs Temperature 97.8 F 09/18/22 13:59 Pulse Rate 120 H 09/18/22 13:59 Respiratory Rate 20 09/18/22 13:59 Blood Pressure 200/115 H 09/18/22 13:59 Pulse Oximetry 99 09/18/22 13:59 Oxygen Delivery Method Room Air 09/18/22 13:59 Temperature 97.8 F 09/18/22 13:59 Pulse Rate 101 H 09/18/22 15:43 Respiratory Rate 20 09/18/22 13:59 Blood Pressure 127/84 09/18/22 15:43 Pulse Oximetry 95 09/18/22 15:43 Oxygen Delivery Method Room Air 09/18/22 15:43 Fraction of Inspired Oxygen 40 09/18/22 14:11 Medical Decision Making MDM Narrative Medical decision making narrative: This patient was placed on CPAP which brought relief to her symptoms. Chest x-ray shows no acute findings. Lab results also are reassuring. The patient remained on CPAP for a couple hours and was weaned initially from oxygen and then CPAP was removed. She is doing well and feels back to normal. She is okay to be discharged home. At the time of discharge the patient appears safe for outpatient management. The treatment plan is reviewed along with written and verbal return precautions. Reasons to return and the importance of close followup were also reviewed. Lab Data Labs: Lab Results 09/18/22 09/18/22 Range/Units 13:40 14:00 WBC 9.25 (4.50-11.00) K/uL RBC 3.88 L (4.00-5.20) m/uL Hgb 10.3 L (12.0-16.0) gm/dL Hct 34.3 (33.0-51.0) % MCV 88 (80-100) fL MCH 27 (26-34) pg MCHC 30 L (32-36) gm/dL RDW Coeff of Ivone 17.0 H (11.5-15.5) % Plt Count 441 H (140-440) K/uL Neut % (Auto) 91.4 H (42.0-72.0) % Lymph % (Auto) 7.0 L (20-44) % Swisher % (Auto) 0.9 (0.0-11.0) % Eos % (Auto) 0.1 (0.0-7.0) % Baso % (Auto) 0.1 (0.0-3.0) % Neut # (Auto) 8.50 H (1.7-7.0) K/uL Lymph # (Auto) 0.60 L (0.90-2.90) K/uL Swisher # (Auto) 0.10 (0.00-0.90) K/UL Eos # (Auto) 0.01 (0.00-0.50) K/uL Baso # (Auto) 0.01 (0.00-0.30) K/uL Sodium 137 (135-149) mmol/L Potassium 5.1 (3.6-5.1) mmol/L Chloride 104 (96-114) mmol/L Carbon Dioxide 25 (20-32) mmol/L BUN 13 (7-30) mg/dL Creatinine 0.5 (0.5-1.5) mg/dL Estimated Creat Clear 53.21 Estimated GFR 105 ml/min Glucose 191 H (60-115) mg/dL Calcium 8.7 (8.4-10.6) mg/dL Total Bilirubin 0.4 (0.1-1.5) mg/dL Direct Bilirubin 0.1 (0.0-0.5) mg/dL AST 20 (12-35) U/L ALT 19 (4-35) U/L Alkaline Phosphatase 193 H (40-150) U/L Total Protein 6.8 (6.0-8.3) g/dL Albumin 3.7 (3.3-5.0) g/dL POC Troponin I 0.01 (0.01-0.04) ng/ml Imaging Data Chest x-ray: Radiologist's impression: Persistent lingular mass. No new acute cardiopulmonary abnormality. ECG Data Attestation: I personally reviewed and interpreted this ECG as follows: Interpretation: Sinus tachycardia, rate 142 beats per minute. There are no specific ST or T-wave abnormalities. Discharge Plan Discharge Clinical Impression: Acute dyspnea, Moderate COPD (chronic obstructive pulmonary disease), Squamous cell carcinoma of left lung Patient Disposition: Home w/ Parent or Adult Condition: Improved Additional Instructions: Continue current plans. Follow up with MD as scheduled or return if worsening. Prescriptions: No Action oxycodone 5 mg tablet 2.5 mg PO Q4H PRN (Reason: severe pain) oxycodone 5 mg tablet 2.5 mg PO Q6H PRN (Reason: pain) Qty: 30 0RF ondansetron HCl 8 mg tablet 8 mg PO Q8H PRN (Reason: nausea and vomiting) Qty: 40 1RF Rx Instructions: Take for chemo-related nausea starting 24 hours after chemo, if prochlorperazine (compazine) ineffective. sertraline 25 mg tablet See Rx Instructions PO QDAY Qty: 60 0RF Rx Instructions: Take 1 tab orally every day; AFter 1 week, increase to 2 tablets daily. fluticasone propionate 50 mcg/actuation spray,suspension 1 spray intranasal .Daily as needed PRN multivitamin Tablet 1 tab PO QDAY cetirizine 10 mg tablet 10 mg PO .Daily as needed PRN albuterol sulfate 90 mcg/actuation HFA aerosol inhaler 2 puff inhalation Q2-4H PRN (Reason: shortness of breath or wheezing) prochlorperazine maleate 10 mg tablet 5 mg PO Q6H PRN Trelegy Ellipta 100-62.5-25 mcg blister with device 1 inh inhalation DAILY sennosides [Senna Lax] 8.6 mg tablet 8.6 mg PO BID PRN naproxen sodium [Aleve] 220 mg capsule 220 mg PO BID PRN acetaminophen [Tylenol Extra Strength] 500 mg tablet 500 mg PO Q4-6H PRN loperamide [Imodium A-D] 2 mg capsule 2 mg PO Q6H PRN Follow Up/Referrals: Cheryl Harrison MD [Primary Care Provider] - Stand Alone Forms: [employer] Info Instructions
[2022-09-18 15:43] VITALS: BP 127/84; PULSE 101; O2SAT 95
[2022-09-18 16:51] VITALS: BP 121/74; RESP 20
== END 2022-09-18 16:54 | disposition home or self-care (01) ==
PROVIDERS: Emergency Provider Emergency Medicine Emergency Medical Services; PCP Family Medicine
DX: R06.00 Dyspnea, unspecified (principal); J44.9 Chronic obstructive pulmonary disease, unspecified; C34.92 Malignant neoplasm of unspecified part of left bronchus or lung
CPT/HCPCS: 36415; 71045; 80048; 80076; 84484; 85025; 93005; 94660; 99284; 99291

== ENCOUNTER 2023-01-14 09:00 | Outpatient (RCR) | payer BC, MEDICARE, SELFPAY ==
--- NOTE | 2022-08-27 13:31 | URNOTE ---
Received request for prior auth for Carboplatin (J9045),Paclitaxel (J9267) Pembrolizumab (J9271), Fosaprepitant (J1453) and Palonosetron (J2469). Per [facility] on behalf of [facility] these have been approved for 4 treatments, 08/28/2022-12/11/2022. Order ID: [id number]
[2022-08-27 14:20] LABS: Basophils Absolute Auto 0.03 K/uL (0.00-0.30); Basophils Percent Auto 0.3 % (0.0-3.0); Eosinophils Percent Auto 7.2 % (0.0-7.0); Hematocrit 35.8 % (33.0-51.0); Hemoglobin* 10.9 gm/dL (12.0-16.0); Immature Granulocytes Abs Auto 0.02 K/uL (0.00-0.30); Immature Granulocytes Pct Auto 0.2 %; Lymphocytes Percent Auto 7.1 % (20-44); Mean Corpuscular HGB Conc 30 gm/dL (32-36); Mean Corpuscular Hemoglobin 27 pg (26-34); Mean Corpuscular Volume 87 fL (80-100); Monocytes Percent Auto 7.9 % (0.0-11.0); Neutrophils Percent Auto 77.3 % (42.0-72.0); Platelet Count* 478 K/uL (140-440); Red Blood Count 4.12 m/uL (4.00-5.20); White Blood Count* 10.39 K/uL (4.50-11.00)
[2022-08-27 14:23] LABS: Slide Review Reflex No
[2022-08-27 14:38] LABS: Albumin* 3.6 g/dL (3.3-5.0); Chloride* 100 mmol/L (96-114)
[2022-08-27 14:39] LABS: Potassium* 5.1 mmol/L (3.6-5.1); Sodium* 139 mmol/L (135-149)
[2022-08-27 14:41] LABS: Bilirubin Total* 0.4 mg/dL (0.1-1.5); Carbon Dioxide* 33 mmol/L (20-32); Creatinine* 0.9 mg/dL (0.5-1.5); Estimated Glomerular Filt Rate 71 ml/min
[2022-08-27 14:42] LABS: Alanine Aminotransferase* 15 U/L (4-35); Alkaline Phosphatase* 184 U/L (40-150); Aspartate Amino Transferase* 19 U/L (12-35); Blood Urea Nitrogen* 26 mg/dL (7-30); Calcium* 9.5 mg/dL (8.4-10.6); Glucose* 132 mg/dL (60-115); Total Protein* 7.1 g/dL (6.0-8.3)
[2022-08-27 15:13] LABS: Thyroid Stimulating Hormone* 0.808 uIU/mL (0.270-4.20)
[2022-08-28] MEDS: PEMBROLIZUMAB 200 MG, TUBING PRIMARY 1 EACH, In-line 0.2 micron filter set 1 EACH in 0.... 216 MG IVPB (10:35)
[2022-08-28] MEDS: dexAMETHasone 12 MG in 0.9 % SODIUM CHLORIDE 100 ml 100 ML 420 MG IVPB (11:16)
[2022-08-28] MEDS: PALONOSETRON 0.25 MG/5 ML inj IV (11:16)
[2022-08-28] MEDS: FAMOTIDINE 20 MG, diphenhydrAMINE 50 MG in 0.9 % SODIUM CHLORIDE 100 ml 100 ML 315 MG IVPB (11:35)
[2022-08-28] MEDS: FOSAPREPITANT 150 MG inj 150 MG in 0.9 % SODIUM CHLORIDE 250 ml 250 ML 520 MG IVPB (11:58)
--- NOTE | 2022-08-28 16:46 | ONC.NURNOTE ---
instructions given for home antiemetics start with compazine tonight and Q 6 hrs Thursday and Thursday then prn for nausea may add zofran prn starting Thursday afternoon if need additional antiemetic add miralax to senna for management of constipation may also add MOM start Boost or other supplement District Sales Representative referral discussed with patient and will be submitted
[2022-08-29 01:10] LABS: Cortisol, Serum 11.2 ug/dL
--- NOTE | 2022-08-29 11:26 | ONC.NURNOTE ---
1st Chemo f/u Phone Call Spoke with patient this morning. She reports she had not had a stool x 4 days (has a history of constipation). Yesterday she increased her sennokot and had stools throughout the evening and overnight. Her stools began watery, then several small delio, watery, then a large formed stool and this morning now watery again. She denies nausea and is taking Compazine q 6hrs as recommended. She is tolerating PO intake and will go to store with to buy Boost/protein shakes. Pt denies questions/concerns. Reviewed she may be increasingly tired over the weekend as the steroid wears off. Reviewed pt to call us if any further questions/concerns; pt agreeable to this plan.
--- NOTE | 2022-09-01 10:03 | ONC.NURNOTE ---
Addendum entered by Brenda Wright RN 09/01/22 15:40: called this afternoon reports that Sherri had one boost today and nothing else- she is resistant to his efforts to encourage more intake she had 3 loose stools today, instructed to repeat the imodium Sherri scheduled for hydration tomorrow afternoon Original Note: patient called in this am diarrhea continues, watery at times, with some unformed stool she has not taken as stool softners since diarrhea started on Thursday am reports 3-4 episodes a day/ in the am she is working hard at drinking fluids rec: add pedialyte and take one immodium this am and then call back this afternoon [facility] update on status
[2022-09-02 13:47] VITALS: BP 99/66; PULSE 108; RESP 16; TEMP 36.3; O2SAT 94
[2022-09-02 13:49] VITALS: BP 100/67; PULSE 116; RESP 16
[2022-09-02 14:01] LABS: Basophils Absolute Auto 0.01 K/uL (0.00-0.30); Basophils Percent Auto 0.2 % (0.0-3.0); Eosinophils Absolute Auto 0.17 K/uL (0.00-0.50); Eosinophils Percent Auto 2.8 % (0.0-7.0); Hematocrit 37.4 % (33.0-51.0); Hemoglobin* 11.7 gm/dL (12.0-16.0); Immature Granulocytes Abs Auto 0.04 K/uL (0.00-0.30); Immature Granulocytes Pct Auto 0.6 %; Lymphocytes Percent Auto 4.4 % (20-44); Mean Corpuscular HGB Conc 31 gm/dL (32-36); Mean Corpuscular Hemoglobin 26 pg (26-34); Mean Corpuscular Volume 84 fL (80-100); Monocytes Percent Auto 0.6 % (0.0-11.0); Neutrophils Percent Auto 91.4 % (42.0-72.0); Platelet Count* 337 K/uL (140-440); RDW Coefficient of Variation % 14.9 % (11.5-15.5); Red Blood Count 4.46 m/uL (4.00-5.20); White Blood Count* 6.16 K/uL (4.50-11.00)
[2022-09-02] MEDS: 0.9 % SODIUM CHLORIDE 1000 ml 1,000 ML IV (14:10)
[2022-09-02 14:15] LABS: Slide Review Reflex No
[2022-09-02 14:29] LABS: Albumin* 3.6 g/dL (3.3-5.0); Chloride* 97 mmol/L (96-114)
[2022-09-02 14:30] LABS: Potassium* 5.1 mmol/L (3.6-5.1); Sodium* 130 mmol/L (135-149)
[2022-09-02 14:32] LABS: Aspartate Amino Transferase* 32 U/L (12-35); Bilirubin Total* 0.7 mg/dL (0.1-1.5); Blood Urea Nitrogen* 21 mg/dL (7-30); Carbon Dioxide* 26 mmol/L (20-32); Creatinine* 0.8 mg/dL (0.5-1.5); Estimated Glomerular Filt Rate 82 ml/min; Total Protein* 6.8 g/dL (6.0-8.3)
[2022-09-02 14:33] LABS: Alanine Aminotransferase* 27 U/L (4-35); Alkaline Phosphatase* 160 U/L (40-150); Calcium* 8.9 mg/dL (8.4-10.6); Glucose* 157 mg/dL (60-115)
--- NOTE | 2022-09-02 15:25 | PC.SOCIAL ---
Social work: Met wit pt on 08/28/22 and with pt and on 09/02/22 during chemo treatment. Pt and were interested in information on meals on wheels as pt was the person who cooked in the household and is currently unable to do that. Provided pt and with resource list with contact information for meals on wheels and mailed home delivered meals. is interested in both of these options and will do research and contact meals on wheels or the companies he wants to try. states he is also having trouble keeping up with the housekeeping and is interested in options for this. Discussed hiring a attendant children's institution or finding a home economics extension worker care agency who could provide housekeeping, meal prep and errands to assist at home. is most interested in the home economics extension worker care options. He is aware this is a private pay service and was provided with a resource list of agencies who provide these services in the [facility]. He will contact them directly to inquire about availability. was also interested in whether a home care nurse would be covered by insurance. Suggested pt discuss this need with her primary care physician as this would require an MD order and would be arranged by the primary care physician. was appreciative of information provided and has the social workers contact information in case they require additional information or resources.
[2022-09-02] MEDS: ONDANSETRON ODT 4 MG TAB 8 MG PO (16:01)
[2022-09-18 09:00] VITALS: BP 122/79; PULSE 107; RESP 16; TEMP 35.8; O2SAT 94
[2022-09-18 09:24] LABS: Basophils Absolute Auto 0.04 K/uL (0.00-0.30); Basophils Percent Auto 0.7 % (0.0-3.0); Eosinophils Absolute Auto 0.14 K/uL (0.00-0.50); Eosinophils Percent Auto 2.3 % (0.0-7.0); Hematocrit 34.1 % (33.0-51.0); Hemoglobin* 10.3 gm/dL (12.0-16.0); Immature Granulocytes Abs Auto 0.02 K/uL (0.00-0.30); Immature Granulocytes Pct Auto 0.3 %; Lymphocytes Percent Auto 12.3 % (20-44); Mean Corpuscular HGB Conc 30 gm/dL (32-36); Mean Corpuscular Hemoglobin 26 pg (26-34); Mean Corpuscular Volume 87 fL (80-100); Monocytes Percent Auto 8.8 % (0.0-11.0); Neutrophils Percent Auto 75.6 % (42.0-72.0); Platelet Count* 411 K/uL (140-440); Red Blood Count 3.92 m/uL (4.00-5.20)
[2022-09-18 09:27] LABS: Slide Review Reflex No
[2022-09-18 09:44] LABS: Albumin* 3.7 g/dL (3.3-5.0); Chloride* 103 mmol/L (96-114); Potassium* 4.1 mmol/L (3.6-5.1); Sodium* 139 mmol/L (135-149)
[2022-09-18 09:46] LABS: Creatinine* 0.5 mg/dL (0.5-1.5); Estimated Glomerular Filt Rate 105 ml/min
[2022-09-18 09:47] LABS: Alanine Aminotransferase* 21 U/L (4-35); Alkaline Phosphatase* 166 U/L (40-150); Aspartate Amino Transferase* 20 U/L (12-35); Bilirubin Total* 0.3 mg/dL (0.1-1.5); Blood Urea Nitrogen* 13 mg/dL (7-30); Carbon Dioxide* 27 mmol/L (20-32); Glucose* 112 mg/dL (60-115); Total Protein* 6.9 g/dL (6.0-8.3)
[2022-09-18 10:43] VITALS: BMI 26.6
[2022-09-18] MEDS: dexAMETHasone 12 MG in 0.9 % SODIUM CHLORIDE 100 ml 100 ML 404.8 MG IVPB (10:51)
[2022-09-18] MEDS: PALONOSETRON 0.25 MG/5 ML inj IV (10:51)
[2022-09-18] MEDS: FOSAPREPITANT 150 MG inj 150 MG in 0.9 % SODIUM CHLORIDE 250 ml 250 ML 510 MG IVPB (11:13)
[2022-09-18] MEDS: FAMOTIDINE 20 MG, diphenhydrAMINE 50 MG in 0.9 % SODIUM CHLORIDE 100 ml 100 ML 309 MG IVPB (11:46)
[2022-09-18] MEDS: PEMBROLIZUMAB 200 MG, TUBING PRIMARY 1 EACH, In-line 0.2 micron filter set 1 EACH in 0.... 216 MG IVPB (12:16)
[2022-09-18 13:15] VITALS: BP 147/77; PULSE 132; RESP 28; TEMP 36.1; O2SAT 58
[2022-09-18 13:20] VITALS: O2SAT 97
--- NOTE | 2022-09-18 14:21 | ONC.NURNOTE ---
Sherri had a slight cough after eating pizza. waited till she felt comfortable before hanging Taxol. aprox 15min into the Taxol pt states feels like she cant breath. states slight chest discomfort. stopped Taxol. sitting forward. code called. Conchita Louise APRN assessing pt. vs 97-147/[id number]. sats 58 RA. placed on 10 L. mask. sats [address] Stokes and RT arrived. pt able to position to the cart and brought to ED. Accompanied PT. Nurse to nurse report given. arrived and info given to him. pt very tired. Hob elevated. placed on Bipap . appears is less distress. sleeping.
--- NOTE | 2022-09-19 09:38 | PC.NURSE ---
Pt's called this morning to inquire about next steps. Due to pt's chemo reaction yesterday, she did not receive all of her chemotherapy. We discussed that pt will see a provider on 10/07/2022 to discuss next steps. No further action until then. Per her , pt went home from ER last evening and is resting now. Support offered.
[2022-09-19 16:33] LABS: Cortisol, Serum 25.1 ug/dL
--- NOTE | 2022-10-03 15:41 | ONC.NURNOTE ---
Called pt to review plan of care for next week. Pt will have iv premeds on 10/08/22 along with keytruda and carboplatin. Pt will take prednisone PO, pepcid PO, and benadryl 10/08/22 PM and 10/09/22 AM. Pt will then receive IV pre meds prior to taxol on 10/09/22. 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 Pt scheduled on Doris's schedule on 10/09 to check in. Pt verbalized understanding of plan of care.
[2022-10-08 09:23] LABS: Basophils Absolute Auto 0.03 K/uL (0.00-0.30); Basophils Percent Auto 0.4 % (0.0-3.0); Eosinophils Absolute Auto 0.41 K/uL (0.00-0.50); Eosinophils Percent Auto 5.5 % (0.0-7.0); Hematocrit 37.9 % (33.0-51.0); Hemoglobin* 11.7 gm/dL (12.0-16.0); Immature Granulocytes Abs Auto 0.02 K/uL (0.00-0.30); Immature Granulocytes Pct Auto 0.3 %; Lymphocytes Percent Auto 11.2 % (20-44); Mean Corpuscular HGB Conc 31 gm/dL (32-36); Mean Corpuscular Hemoglobin 28 pg (26-34); Mean Corpuscular Volume 91 fL (80-100); Monocytes Percent Auto 10.2 % (0.0-11.0); Neutrophils Percent Auto 72.4 % (42.0-72.0); Platelet Count* 326 K/uL (140-440); Red Blood Count 4.15 m/uL (4.00-5.20); White Blood Count* 7.44 K/uL (4.50-11.00)
[2022-10-08 09:33] LABS: Slide Review Reflex No
[2022-10-08 09:35] LABS: Albumin* 3.9 g/dL (3.3-5.0); Chloride* 105 mmol/L (96-114); Sodium* 141 mmol/L (135-149)
[2022-10-08 09:36] LABS: Potassium* 4.8 mmol/L (3.6-5.1)
[2022-10-08 09:38] LABS: Alkaline Phosphatase* 144 U/L (40-150); Aspartate Amino Transferase* 20 U/L (12-35); Bilirubin Total* 0.5 mg/dL (0.1-1.5); Blood Urea Nitrogen* 12 mg/dL (7-30); Carbon Dioxide* 30 mmol/L (20-32); Creatinine* 0.6 mg/dL (0.5-1.5); Estimated Glomerular Filt Rate 100 ml/min; Glucose* 118 mg/dL (60-115); Total Protein* 7.1 g/dL (6.0-8.3)
[2022-10-08 09:39] LABS: Alanine Aminotransferase* 19 U/L (4-35); Calcium* 9.2 mg/dL (8.4-10.6)
[2022-10-08 09:46] VITALS: BP 121/79; PULSE 94; RESP 16; TEMP 36.2; O2SAT 93
[2022-10-08] MEDS: PEMBROLIZUMAB 200 MG, TUBING PRIMARY 1 EACH, In-line 0.2 micron filter set 1 EACH in 0.... 216 MG IVPB (10:16)
[2022-10-08] MEDS: PALONOSETRON 0.25 MG/5 ML inj IV (10:47)
[2022-10-08] MEDS: dexAMETHasone 12 MG in 0.9 % SODIUM CHLORIDE 100 ml 100 ML 420 MG IVPB (10:48)
[2022-10-08] MEDS: FOSAPREPITANT 150 MG inj 150 MG in 0.9 % SODIUM CHLORIDE 250 ml 250 ML 510 MG IVPB (11:08)
[2022-10-09] MEDS: dexAMETHasone 10 MG in 0.9 % SODIUM CHLORIDE 100 ml 100 ML 420 MG IVPB (10:15)
[2022-10-09 11:17] VITALS: BP 117/70; PULSE 66; RESP 18; O2SAT 95
--- NOTE | 2022-10-10 10:48 | PC.NURSE ---
SCHEDULING Pt due for next chemo cycle on 10/30/2022. Due to previous reaction to Taxol, this week pt was given Pembro and Carbo on Thursday and MD visit & Taxol on . RN scheduled the next cycle the same, however need MD clarification as to whether she would like next cycle scheduled this way. Pt tolerated the infusion well yesterday. We started at a rate of 92 cc/hour (dose set to infuse over 6 hours which was a 50% rate reduction) and then at 1500, pt was tolerating it so well we turned the rate up to 150 cc/hour per Dr. Finley. Will update pt on the final plan after MD reviews on Thursday.
--- NOTE | 2022-10-13 14:28 | PC.NURSE ---
Dr. George reviewed RN note from last week and provided very specific guidance regarding next treatment cycle. RN called Sherri with the update. Cancelled MD appt for , 10/30/2022 and moved chemo start time up to 0830. Pt is aware. RN directed pt to take pre-meds the night before and morning of next Taxol as per last time and she verbalized understanding. Sherri shared that she is having diarrhea today. She took 2 Imodium with the first stool and one with every subsequent stool. pt has had 2 loose watery stools today. No c/o blood in stool, abd cramping, or waking at night with diarrhea. Sherri will call if she develops any of those s/s and/or if she max's out the Imodium dose.
[2022-10-29 09:30] LABS: Basophils Absolute Auto 0.03 K/uL (0.00-0.30); Basophils Percent Auto 0.5 % (0.0-3.0); Eosinophils Absolute Auto 0.15 K/uL (0.00-0.50); Eosinophils Percent Auto 2.3 % (0.0-7.0); Hematocrit 39.3 % (33.0-51.0); Hemoglobin* 12.1 gm/dL (12.0-16.0); Immature Granulocytes Abs Auto 0.06 K/uL (0.00-0.30); Immature Granulocytes Pct Auto 0.9 %; Lymphocytes Percent Auto 14.7 % (20-44); Mean Corpuscular HGB Conc 31 gm/dL (32-36); Mean Corpuscular Hemoglobin 28 pg (26-34); Mean Corpuscular Volume 92 fL (80-100); Monocytes Percent Auto 11.3 % (0.0-11.0); Neutrophils Absolute Auto 4.66 K/uL (1.7-7.0); Neutrophils Percent Auto 70.3 % (42.0-72.0); Platelet Count* 242 K/uL (140-440); RDW Coefficient of Variation % 20.7 % (11.5-15.5); Red Blood Count 4.26 m/uL (4.00-5.20); White Blood Count* 6.62 K/uL (4.50-11.00)
[2022-10-29 09:43] LABS: Slide Review Reflex No
[2022-10-29 09:46] LABS: Chloride* 104 mmol/L (96-114); Potassium* 4.4 mmol/L (3.6-5.1); Sodium* 140 mmol/L (135-149)
[2022-10-29 09:48] LABS: Aspartate Amino Transferase* 22 U/L (12-35); Bilirubin Total* 0.4 mg/dL (0.1-1.5); Carbon Dioxide* 29 mmol/L (20-32); Creatinine* 0.6 mg/dL (0.5-1.5); Estimated Glomerular Filt Rate 100 ml/min; Total Protein* 6.9 g/dL (6.0-8.3)
[2022-10-29 09:49] LABS: Alanine Aminotransferase* 21 U/L (4-35); Alkaline Phosphatase* 148 U/L (40-150); Blood Urea Nitrogen* 10 mg/dL (7-30); Glucose* 112 mg/dL (60-115)
[2022-10-29] MEDS: PEMBROLIZUMAB 200 MG, TUBING PRIMARY 1 EACH, In-line 0.2 micron filter set 1 EACH in 0.... 216 MG IVPB (10:55)
[2022-10-29] MEDS: dexAMETHasone 12 MG in 0.9 % SODIUM CHLORIDE 100 ml 100 ML 404.8 MG IVPB (11:29)
[2022-10-29] MEDS: PALONOSETRON 0.25 MG/5 ML inj IV (11:29)
[2022-10-29] MEDS: FOSAPREPITANT 150 MG inj 150 MG in 0.9 % SODIUM CHLORIDE 250 ml 250 ML 510 MG IVPB (11:52)
[2022-10-30 08:40] VITALS: BP 122/72; PULSE 98; RESP 16; TEMP 35.8; O2SAT 94
[2022-10-30] MEDS: dexAMETHasone 10 MG in 0.9 % SODIUM CHLORIDE 100 ml 100 ML 404 MG IVPB (09:03)
--- NOTE | 2022-10-30 15:15 | ONC.NURNOTE ---
Tolerated treatment well today
[2022-10-31 06:24] LABS: Cortisol, Serum 20.4 ug/dL
[2022-11-20 14:02] LABS: Basophils Absolute Auto 0.03 K/uL (0.00-0.30); Basophils Percent Auto 0.6 % (0.0-3.0); Eosinophils Absolute Auto 0.08 K/uL (0.00-0.50); Eosinophils Percent Auto 1.6 % (0.0-7.0); Hematocrit 35.3 % (33.0-51.0); Hemoglobin* 11.2 gm/dL (12.0-16.0); Immature Granulocytes Abs Auto 0.01 K/uL (0.00-0.30); Immature Granulocytes Pct Auto 0.2 %; Mean Corpuscular HGB Conc 32 gm/dL (32-36); Mean Corpuscular Hemoglobin 31 pg (26-34); Mean Corpuscular Volume 96 fL (80-100); Monocytes Percent Auto 12.9 % (0.0-11.0); Neutrophils Absolute Auto 3.22 K/uL (1.7-7.0); Neutrophils Percent Auto 65.7 % (42.0-72.0); Platelet Count* 180 K/uL (140-440); RDW Coefficient of Variation % 21.2 % (11.5-15.5); Red Blood Count 3.66 m/uL (4.00-5.20)
[2022-11-20 14:04] LABS: Slide Review Reflex No
[2022-11-20 14:14] LABS: Albumin* 3.9 g/dL (3.3-5.0); Chloride* 103 mmol/L (96-114)
[2022-11-20 14:15] LABS: Sodium* 140 mmol/L (135-149)
[2022-11-20 14:17] LABS: Bilirubin Total* 0.4 mg/dL (0.1-1.5); Carbon Dioxide* 30 mmol/L (20-32); Creatinine* 0.5 mg/dL (0.5-1.5); Estimated Glomerular Filt Rate 104 ml/min
[2022-11-20 14:18] LABS: Alanine Aminotransferase* 17 U/L (4-35); Alkaline Phosphatase* 125 U/L (40-150); Aspartate Amino Transferase* 19 U/L (12-35); Blood Urea Nitrogen* 13 mg/dL (7-30); Calcium* 9.2 mg/dL (8.4-10.6); Glucose* 98 mg/dL (60-115); Total Protein* 6.7 g/dL (6.0-8.3)
[2022-11-20 14:48] LABS: Thyroid Stimulating Hormone* 0.866 uIU/mL (0.270-4.20)
[2022-11-20] MEDS: PEMBROLIZUMAB 200 MG, TUBING PRIMARY 1 EACH, In-line 0.2 micron filter set 1 EACH in 0.... 216 MG IVPB (15:27)
[2022-11-21 09:28] LABS: Cortisol, Serum 22.4 ug/dL
[2022-11-21 09:46] VITALS: BP 134/72; PULSE 84; RESP 16; TEMP 36.1; O2SAT 96
[2022-11-21] MEDS: dexAMETHasone 10 MG in 0.9 % SODIUM CHLORIDE 100 ml 100 ML 404 MG IVPB (10:10)
[2022-11-21] MEDS: FAMOTIDINE 20 MG, diphenhydrAMINE 50 MG in 0.9 % SODIUM CHLORIDE 100 ml 100 ML 309 MG IVPB (10:40)
[2022-11-21 12:35] VITALS: BP 142/78; PULSE 68; RESP 16; TEMP 36; O2SAT 98
--- NOTE | 2022-11-21 13:59 | ONC.NURNOTE ---
She did state she tool her benadryl last evening and at 0830 this am. started Taxol at 100cc hr x1 hr. pt samara well so increased to 150cc hr till infused. total of [address] George note
--- NOTE | 2022-12-05 14:29 | URNOTE ---
Received request for prior auth for Taxol (J9267) 320mg, Carboplatin (J9045) 605mg, Pembrolizumab (J9271) 200mg, Emend (J1453) 150mg and Aloxi (J2469) 0.25mg. These have been approved 12/10/2022-04/14/2023 for 4 Doses. This approval is also dose specific. Order #[id number]
[2022-12-10 09:19] LABS: Basophils Absolute Auto 0.03 K/uL (0.00-0.30); Basophils Percent Auto 0.4 % (0.0-3.0); Eosinophils Absolute Auto 0.11 K/uL (0.00-0.50); Eosinophils Percent Auto 1.5 % (0.0-7.0); Hematocrit 37.4 % (33.0-51.0); Hemoglobin* 11.8 gm/dL (12.0-16.0); Immature Granulocytes Abs Auto 0.04 K/uL (0.00-0.30); Immature Granulocytes Pct Auto 0.5 %; Lymphocytes Percent Auto 11.9 % (20-44); Mean Corpuscular HGB Conc 32 gm/dL (32-36); Mean Corpuscular Hemoglobin 31 pg (26-34); Mean Corpuscular Volume 99 fL (80-100); Monocytes Percent Auto 12.1 % (0.0-11.0); Neutrophils Percent Auto 73.6 % (42.0-72.0); Platelet Count* 305 K/uL (140-440); RDW Coefficient of Variation % 19.7 % (11.5-15.5); Red Blood Count 3.79 m/uL (4.00-5.20); White Blood Count* 7.29 K/uL (4.50-11.00)
[2022-12-10 09:28] LABS: Slide Review Reflex No
[2022-12-10 09:40] LABS: Chloride* 102 mmol/L (96-114); Potassium* 4.3 mmol/L (3.6-5.1); Sodium* 138 mmol/L (135-149)
[2022-12-10 09:42] LABS: Aspartate Amino Transferase* 22 U/L (12-35); Bilirubin Total* 0.5 mg/dL (0.1-1.5); Carbon Dioxide* 30 mmol/L (20-32); Creatinine* 0.7 mg/dL (0.5-1.5); Estimated Glomerular Filt Rate 96 ml/min
[2022-12-10 09:43] LABS: Alanine Aminotransferase* 16 U/L (4-35); Alkaline Phosphatase* 128 U/L (40-150); Blood Urea Nitrogen* 12 mg/dL (7-30); Calcium* 9.2 mg/dL (8.4-10.6); Glucose* 122 mg/dL (60-115); Total Protein* 6.8 g/dL (6.0-8.3)
[2022-12-10] MEDS: PEMBROLIZUMAB 200 MG, TUBING PRIMARY 1 EACH, In-line 0.2 micron filter set 1 EACH in 0.... 216 MG IVPB (10:55)
[2022-12-10] MEDS: PALONOSETRON 0.25 MG/5 ML inj IV (11:32)
[2022-12-10] MEDS: dexAMETHasone 12 MG in 0.9 % SODIUM CHLORIDE 100 ml 100 ML 404.8 MG IVPB (11:32)
[2022-12-10] MEDS: FOSAPREPITANT 150 MG inj 150 MG in 0.9 % SODIUM CHLORIDE 250 ml 250 ML 510 MG IVPB (11:56)
[2022-12-11 22:04] LABS: Cortisol, Serum 20.4 ug/dL
[2023-01-02 08:21] LABS: Hematocrit 33.9 % (33.0-51.0); Hemoglobin* 10.9 gm/dL (12.0-16.0); Lymphocytes Percent Auto 14.6 % (20-44); Mean Corpuscular HGB Conc 32 gm/dL (32-36); Mean Corpuscular Hemoglobin 32 pg (26-34); Mean Corpuscular Volume 99 fL (80-100); Neutrophils Percent Auto 75.9 % (42.0-72.0); RDW Coefficient of Variation % 17.1 % (11.5-15.5); Red Blood Count 3.43 m/uL (4.00-5.20); White Blood Count* 4.18 K/uL (4.50-11.00)
[2023-01-02 08:22] LABS: Basophils Percent Auto 0.2 % (0.0-3.0); Eosinophils Percent Auto 0.7 % (0.0-7.0); Immature Granulocytes Pct Auto 0.2 %; Monocytes Percent Auto 8.4 % (0.0-11.0)
--- NOTE | 2023-01-02 08:26 | URNOTE ---
Request received for authorization for Mamadou (J9271). Prior authorization is not required as services are based on medical necessity and follow Medicare guidelines. Pt has medicare coverage only, reports that coverage from [facility] ended 12/29/22 per Kaylie CABRERA and Twyla in patient financial.
[2023-01-02 08:43] LABS: Albumin* 4.1 g/dL (3.3-5.0); Chloride* 102 mmol/L (96-114)
[2023-01-02 08:44] LABS: Sodium* 138 mmol/L (135-149)
[2023-01-02 08:46] LABS: Aspartate Amino Transferase* 26 U/L (12-35); Bilirubin Total* 0.4 mg/dL (0.1-1.5); Carbon Dioxide* 25 mmol/L (20-32); Creatinine* 0.6 mg/dL (0.5-1.5); Estimated Glomerular Filt Rate 100 ml/min; Total Protein* 6.9 g/dL (6.0-8.3)
[2023-01-02 08:47] LABS: Alkaline Phosphatase* 113 U/L (40-150); Blood Urea Nitrogen* 14 mg/dL (7-30); Calcium* 9.2 mg/dL (8.4-10.6); Glucose* 134 mg/dL (60-115)
[2023-01-02 08:52] LABS: Platelet Count* 60 K/uL (140-440); Slide Review Reflex Yes
[2023-01-02 08:53] LABS: Slide Review Acceptable Review (Acceptable)
[2023-01-02 10:14] LABS: Alanine Aminotransferase* 36 U/L (4-35)
[2023-01-03 16:35] LABS: Cortisol, Serum 6.8 ug/dL
--- NOTE | 2023-01-06 11:47 | URNOTE ---
Request received for authorization for Zoledronic Acid (J3489). Prior authorization is not required as services are based on medical necessity and follow Medicare guidelines.
[2023-01-08 11:12] LABS: Basophils Percent Auto 0.3 % (0.0-3.0); Eosinophils Percent Auto 4.3 % (0.0-7.0); Hematocrit 33.4 % (33.0-51.0); Lymphocytes Percent Auto 14.5 % (20-44); Mean Corpuscular HGB Conc 33 gm/dL (32-36); Mean Corpuscular Hemoglobin 33 pg (26-34); Mean Corpuscular Volume 100 fL (80-100); Monocytes Percent Auto 5.1 % (0.0-11.0); Neutrophils Percent Auto 75.8 % (42.0-72.0); Platelet Count* 57 K/uL (140-440); RDW Coefficient of Variation % 17.1 % (11.5-15.5); Red Blood Count 3.34 m/uL (4.00-5.20); White Blood Count* 3.94 K/uL (4.50-11.00)
[2023-01-08 11:30] VITALS: BP 133/76; PULSE 82; RESP 16; TEMP 36.1; O2SAT 94
[2023-01-08 11:37] LABS: Chloride* 101 mmol/L (96-114); Slide Review Reflex No
[2023-01-08 11:38] LABS: Albumin* 3.9 g/dL (3.3-5.0); Potassium* 3.7 mmol/L (3.6-5.1); Sodium* 138 mmol/L (135-149)
[2023-01-08 11:41] LABS: Alanine Aminotransferase* 16 U/L (4-35); Alkaline Phosphatase* 117 U/L (40-150); Aspartate Amino Transferase* 19 U/L (12-35); Bilirubin Total* 0.6 mg/dL (0.1-1.5); Blood Urea Nitrogen* 19 mg/dL (7-30); Carbon Dioxide* 32 mmol/L (20-32); Creatinine* 0.7 mg/dL (0.5-1.5); Estimated Glomerular Filt Rate 96 ml/min; Total Protein* 6.9 g/dL (6.0-8.3)
[2023-01-08 11:42] LABS: Calcium* 9.6 mg/dL (8.4-10.6); Glucose* 96 mg/dL (60-115)
[2023-01-09 12:16] LABS: Cortisol, Serum 15.9 ug/dL
[2023-01-14 09:21] LABS: Basophils Percent Auto 0.3 % (0.0-3.0); Eosinophils Percent Auto 3.8 % (0.0-7.0); Hematocrit 30.9 % (33.0-51.0); Hemoglobin* 10.1 gm/dL (12.0-16.0); Immature Granulocytes Pct Auto 0.3 %; Lymphocytes Percent Auto 21.1 % (20-44); Mean Corpuscular HGB Conc 33 gm/dL (32-36); Mean Corpuscular Hemoglobin 33 pg (26-34); Mean Corpuscular Volume 101 fL (80-100); Monocytes Percent Auto 12.8 % (0.0-11.0); Neutrophils Percent Auto 61.7 % (42.0-72.0); Platelet Count* 127 K/uL (140-440); RDW Coefficient of Variation % 17.1 % (11.5-15.5); Red Blood Count 3.05 m/uL (4.00-5.20); White Blood Count* 2.89 K/uL (4.50-11.00)
[2023-01-14 09:23] LABS: Slide Review Reflex No
[2023-01-14 09:24] VITALS: BP 118/72; PULSE 93; RESP 16; TEMP 36.2; O2SAT 95
[2023-01-14] MEDS: PEMBROLIZUMAB 200 MG, TUBING PRIMARY 1 EACH, In-line 0.2 micron filter set 1 EACH in 0.... 216 MG IVPB (10:12)
--- NOTE | 2023-01-23 15:13 | ONC.NURNOTE ---
Patient's spouse called office stating that following her last keytruda infusion she came home extremely fatigued. This improved over the next couple of days, but in the last few days he notes that patient is having an increased difficulty in following a thought. She seems more confused, with an increase in forgetfulness. Upon discussion, patient also having balance issues that seem to be new. In light of all the new symptoms, recommended patient be seen in urgent care or ER. Spouse unsure if will be able to talk patient into going, credit underwriter talked with patient and discussed concerns with waiting until seen by us. Patient was agreeable to being seen in ER. Nursing to call on Thursday to check on patient.
--- NOTE | 2023-01-28 10:42 | ONC.NURNOTE ---
Chris called stating she was in the ER yesturday. Her scan shows mets. She received fluid in the ER and was sent home. Chris states today that Sherri in not taking in fluids. She has increased bone pain with any movement. her. She can hardly walk. He does state her speech is clear. Discussed with Conchita Louise APRN. Per Conchita called Dr. Jose Miguel Elmore with this information. Awaiting a call back to see if Sherri can get a Home care referrel. Called Chris with this update. He states she just threw up and on the couch. He states he cant bring her in. I encouraged him to bring her to the ER hopefully admitting her. He states the experience yesturday was poor and he does not want to go to the ER. I will call him back with a update and again encourage ther ER.
--- NOTE | 2023-01-28 11:28 | ONC.NURNOTE ---
Per Dr Gillespie nurse Catarina, she cannot directly admit Sherri without seeing her and assesing her. Chris aware and encouraged him to call a ambulance to bring her to the ER. Pt avocate aware.
== END 2023-02-07 23:59 | disposition home or self-care (01) ==
LOC: CCIC 09:00
PROVIDERS: Clinical Nurse Specialist; PCP Family Medicine; Referring Provider Family Medicine; Visit Provider Internal Medicine Hematology & Oncology
DX: C34.92 Malignant neoplasm of unspecified part of left bronchus or lung (principal); Z51.12 Encounter for antineoplastic immunotherapy; C79.51 Secondary malignant neoplasm of bone; C77.9 Secondary and unspecified malignant neoplasm of lymph node, unspecified; C78.7 Secondary malignant neoplasm of liver and intrahepatic bile duct
CPT/HCPCS: 36415; 80053; 82533; 84443; 85025; 96360; 96376; 96413; 96415; 96417; 97802; 99202; 99205; 99211; 99212; 99213; 99214; 99215; A9270; J1100; J1200; J1453; J2469; J7030; J7050; J9045; J9267; J9271; S0028

== ENCOUNTER 2023-01-26 11:34 | Outpatient (CLI) | payer MEDICARE, SELFPAY ==
--- NOTE | 2023-01-26 13:00 | CRLHL7_ITS ---
For Patients: As a result of the Century Cures Act, medical imaging exams and procedure reports are released immediately into your electronic medical record. You may view this report before your referring provider. If you have questions, please contact your health care provider. Indication: LUNG CANCER. PAIN BILATERAL LOWER RIBS, UNDER BREASTS Technique: Post contrast CT chest. 75 cc Isovue 370 intravenous contrast. Please note that all CT scans at this facility use dose modulation, iterative reconstruction, and/or weight-based dosing when appropriate to reduce radiation dose to as low as reasonably achievable. Comparison: CT PET 11/13/2022, CT chest 08/15/2022 Findings: Destructive changes involving C7 on the left are again noted. There is a new area of lysis within the right 2nd rib laterally measuring 1.2 cm. A healing left lateral 6th rib fracture is present. Fracture deformity of the left posterior lateral 8th rib noted. This is unchanged. The sternum is intact. Metastatic foci within several thoracic vertebral bodies are again noted including T1, T4 T7, T8, T9 and the L1/2 vertebral bodies. Similar mildly prominent mediastinal lymph nodes when compared to the prior CT-PET scan. Old granulomatous changes noted. Left perihilar lung mass is similar to the CT pad and measures approximately 4.8 by 3.5 cm. However, there is a new nodule within the left upper lobe measuring 8 millimeters, . An additional new nodule is present within the left upper lobe posteriorly measuring 1.6 cm, 43. Finally, increased size of nodule left upper lobe measuring 1.2 cm, 38. Underlying COPD/emphysema. No pleural effusion. The breast tissue appears normal. No thyroid lesion. Gallbladder absent. Metastatic lesions within the liver are possibly more conspicuous. Intrahepatic lesions measure 2.4 cm within the inferior right hepatic lobe and 1.6 cm within the periphery of the right hepatic lobe. Additional smaller densities within the left hepatic lobe are noted measuring 5 millimeters and within the right hepatic lobe inferiorly measuring 9 millimeters. Impression: Similar left perihilar mass. Additional new/enlarging nodules within the left upper lobe are present which measure up to 1.6 cm. Persistent mediastinal and left hilar adenopathy which is probably similar to the recent CT PET scan. Multifocal metastatic foci throughout the skeletal system. Possible new lesion within the right 2nd rib. Subacute left-sided rib fractures. There is no anterior rib fracture to explain the current symptoms. Possible mild increased conspicuity of the known intrahepatic metastatic lesions which measure up to 2.4 cm. Please note that all CT scans at this facility use dose modulation, iterative reconstruction, and/or weight-based dosing when appropriate to reduce radiation dose to as low as reasonably achievable. Dictated by Antoni Byers MD @ 01/27/2023 10:49:56 AM (Electronically Signed)
== END 2023-01-26 11:35 | disposition home or self-care (01) ==
LOC: CT 11:37
PROVIDERS: PCP Family Medicine; Visit Provider Internal Medicine Hematology & Oncology
DX: C34.92 Malignant neoplasm of unspecified part of left bronchus or lung (principal); R59.9 Enlarged lymph nodes, unspecified
CPT/HCPCS: 71260; Q9967

== ENCOUNTER 2023-01-27 09:42 | Outpatient (CLI) | payer MEDICARE, SELFPAY | END 2023-01-27 09:43 | disposition home or self-care (01) | LOC: AMB 01-28 14:11 | PROVIDERS: PCP Family Medicine; Visit Provider Family Medicine | DX: R53.1 Weakness (principal); R26.9 Unspecified abnormalities of gait and mobility | CPT/HCPCS: A0425; A0429 ==

== ENCOUNTER 2023-01-27 10:09 | Emergency (ER) | payer MEDICARE, SELFPAY ==
[2023-01-27 10:14] VITALS: BP 134/91; PULSE 80; RESP 18; TEMP 36.4; O2SAT 95; BMI 27.5
--- NOTE | 2023-01-27 10:23 | ED_ITS ---
HPI - General Adult General Time Seen by Provider: 10:23 Date Seen: 01/27/23 Chief complaint: Weakness Stated complaint: weakness Time Seen by Provider: 01/27/23 10:23 Source: patient and RN notes reviewed History of Present Illness HPI narrative: Patient is brought into the ED for complaint weakness, no energy. She is undergoing chemotherapy, for a metastatic lung cancer. 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 There is metastases to bone, lymph nodes and liver. She told me she was not having any pain when I questioned her but noted on triage intake that she was complaining of recurrent chest pain and right upper quadrant pain. Later, she states the pain in her left side of the chest wall has returned. It had initially went away after palliative radiation to skeletal metastases in the ribs. She has known cervical, thoracic and rib metastases. She reportedly did have palliative radiation. She states she is just weak and no energy, her even had to help her sit up in bed this morning. She has no specific worries or any concerns about a specific issue at this time. She states she is drinking but notes that there is room for improvement. Denies any shortness of breath but when I specifically asked about chest pain, she states that the left-sided chest pain she had is back. Denies any acute nausea vomiting or abdominal pain but notes sometimes she will have nausea. Denies any urinary symptoms. She does note she has some edema of her lower extremities. She resides with her . Related Data Home Medications Medication Instructions Recorded Confirmed cetirizine 10 mg tablet 10 mg PO DAILY 01/08/22 01/02/23 fluticasone propionate 50 1 spray intranasal DAILY 01/08/22 01/02/23 mcg/actuation nasal spray,suspension multivitamin 1 tab PO QDAY 01/08/22 01/02/23 prochlorperazine maleate 10 mg 5 mg PO Q6H PRN 08/13/22 01/02/23 tablet acetaminophen 500 mg tablet 500 mg PO Q4-6H PRN 08/27/22 01/02/23 (Tylenol Extra Strength) naproxen sodium 220 mg capsule 220 mg PO BID PRN 08/27/22 01/02/23 (Aleve) sennosides 8.6 mg tablet (Senna 8.6 mg PO BID PRN 08/27/22 01/02/23 Lax) loperamide 2 mg capsule (Imodium 2 mg PO Q6H PRN 09/02/22 01/02/23 A-D) diphenhydramine HCl 25 mg capsule 25 mg PO TID PRN 10/09/22 01/02/23 (Benadryl) famotidine 20 mg tablet (Pepcid) 20 mg PO QDAY PRN 10/09/22 01/02/23 oxycodone 5 mg capsule 2.5 mg PO Q6H PRN 01/02/23 01/02/23 Previous Rx's Medication Instructions Recorded ondansetron HCl 8 mg tablet 8 mg PO Q8H PRN nausea and 09/18/22 vomiting #40 tabs albuterol sulfate 90 mcg/actuation 2 puff inhalation Q4-6H PRN 09/22/22 aerosol inhaler shortness of breath or wheezing #6.7 grams fluticasone fur. 100 mcg-umeclid 1 inh inhalation DAILY #60 ea 09/22/22 62.5 mcg-vilant 25 mcg inhalat.powder (Trelegy Ellipta) sertraline 25 mg tablet 50 mg (2 x 25 mg) PO QDAY #180 tabs 01/01/23 calcium carbonate 600 mg-vitamin 1 tab PO BIDWMEAL #100 tabs 01/05/23 D3 10 mcg (400 unit) chewable tablet (Calcium 600 with Vitamin D3) Allergies Allergy/AdvReac Type Severity Reaction Status Date / Time Penicillins Allergy Mild Familial Verified 01/26/23 13:01 anaphylactic reaction Review of Systems Status of ROS: Reports: 6 or more systems reviewed and unremarkable except as noted in History and below [facility] Medical History Hyponatremia ?E87.1 - Hypo-osmolality and hyponatremia (ICD-10) Constipation ?K59.00 - Constipation, unspecified (ICD-10) Cancer associated pain ?G89.3 - Neoplasm related pain (acute) (chronic) (ICD-10) Metastasis to lymph nodes ?C77.9 - Secondary and unspecified malignant neoplasm of lymph node, unspecified (ICD-10) Bone metastases ?C79.51 - Secondary malignant neoplasm of bone (ICD-10) Liver metastases ?C78.7 - Secondary malignant neoplasm of liver and intrahepatic bile duct (ICD-10) Allergic rhinitis ?J30.9 - Allergic rhinitis, unspecified (ICD-10) Short of breath on exertion ?R06.02 - Shortness of breath (ICD-10) Moderate COPD (chronic obstructive pulmonary disease) (2019) ?J44.9 - Chronic obstructive pulmonary disease, unspecified (ICD-10) Insomnia ?G47.00 - Insomnia, unspecified (ICD-10) Hemorrhage into subarachnoid space of neuraxis (2016) ?I60.9 - Nontraumatic subarachnoid hemorrhage, unspecified (ICD-10) Depression ?F32.A - Depression, unspecified (ICD-10) Cognitive deficit following cerebrovascular accident (CVA) ?I69.319 - Unspecified symptoms and signs involving cognitive functions following cerebral infarction (ICD-10) Surgical History Status post ventriculoperitoneal shunt (2016) ?Z98.2 - Presence of cerebrospinal fluid drainage device (ICD-10) History of eye surgery (195) ?Z98.890 - Other specified postprocedural states (ICD-10) History of cholecystectomy ?Z90.49 - Acquired absence of other specified parts of digestive tract (ICD- 10) History of cerebral aneurysm repair (2016) ?Z98.890 - Other specified postprocedural states (ICD-10) ?Z86.79 - Personal history of other diseases of the circulatory system (ICD- 10) Family History Father Basal cell carcinoma Coronary artery disease Pacemaker Mother Basal cell carcinoma Aunt Breast cancer Other Colonic polyp Social History Narrative: Does not have regular exercise regimen but walks a lot at work Ex-smoker. 40 pack year, quit 2016 Rarely consumes alcohol [employer], [employer], no kids Smoking Status: Former smoker Do you use any of these nicotine containing products: None Second hand tobacco smoke exposure: No How often do you have a drink containing alcohol: never How often do you have six or more drinks on one occasion: Never AUDIT-C Alcohol total score: 0 Non-prescribed substance use: denies use Little interest or pleasure in doing things: nearly every day Feeling down, depressed, or hopeless: nearly every day service: No Exam Const: Vital Signs, click to edit/add: Vital Signs - 24 hr 01/27/23 10:14 Temperature 97.6 F Pulse Rate [Pulse Oximeter] 80 Respiratory Rate 18 Blood Pressure [Ri ght Upper Arm] 134/91 H Pulse Oximetry 95 Oxygen Delivery Me thod Room Air Documenting provider has reviewed patient's vital signs: yes Other: 67-year-old female lying in the bed in e xam room to. Alert and interactive, very pleasant. She has right exotropia which is known to be baseline, no scleral icterus noted. Face atraumatic, able speak in complete sentences. No thyromegaly masses or nodules, no neck masses, no noted jugular venous distension. Lung sounds are distant but no wheezing or crackles, not tachypneic. CV regular rate and rhythm no murmur, normal S1-S2 no S3-S4. Abdomen is currently soft does not complain of any tenderness when I palpate. There is no rebound or guarding. She has left greater than right lower extremity edema which is mild. No noted calf tenderness at this time. Skin visualized without any rash. Course Course Hospital Course: Will do laboratory evaluation on this patient. She does not seem to have any focus of infection or any changes that suggest infection outside of weakness. Do think we should do a COVID given her weakness. Will see where her labs lie a, consider blood cultures if there is changes in her status or concern for focus of infection develop. Will initiate a L of normal saline over 2 hours as she likely probably has some overall relative dehydration from poor oral intake. She has a history of hyponatremia which certainly could be at play here and obviously will be checking chemistries. She did have a chest CT done yesterday which we will make sure is red, have called Radiology to have this read shortly. Reevaluation(s) Time of Reevaluation #1: 13:51 Reevaluation #1: Patient states she is feeling better. Did review with her that her labs are looking stable, see nothing that requires any intervention. Hemoglobin is at 9.6 but is not unexpected with chemotherapy, does not require transfusion at this level yet. She states she does not feel as weak as she does, thinks she can return home. She is waiting for her to come back. Urinalysis was just collected. Will give her another 500 mL normal saline while we wait for her to return. Plan is to discharge to home. Will ensure urinalysis is not showing any concerning change. No DVT on US. Vital Signs Vital signs: Initial Vital Signs Temperature 97.6 F 01/27/23 10:14 Temperature Source Temporal Artery Scan 01/27/23 10:14 Pulse Rate 80 01/27/23 10:14 Pulse Rhythm Regular 01/27/23 10:14 Respiratory Rate 18 01/27/23 10:14 Blood Pressure 134/91 H 01/27/23 10:14 Blood Pressure Mean 105 01/27/23 10:14 Blood Pressure Position Supine 01/27/23 10:14 Pulse Oximetry 95 01/27/23 10:14 Oxygen Delivery Method Room Air 01/27/23 10:14 Vital Signs Temperature 97.6 F 01/27/23 10:14 Pulse Rate 80 01/27/23 10:14 Respiratory Rate 18 01/27/23 10:14 Blood Pressure 134/91 H 01/27/23 10:14 Pulse Oximetry 95 01/27/23 10:14 Oxygen Delivery Method Room Air 01/27/23 10:14 Temperature 97.6 F 01/27/23 10:14 Pulse Rate 80 01/27/23 10:14 Respiratory Rate 18 01/27/23 10:14 Blood Pressure 134/91 H 01/27/23 10:14 Pulse Oximetry 95 01/27/23 10:14 Oxygen Delivery Method Room Air 01/27/23 10:14 Medical Decision Making Lab Data Lab results reviewed: Yes I reviewed the patient's lab results Labs: Lab Results 01/27/23 01/27/23 01/27/23 Range/Units 10:30 10:45 13:30 WBC 9.03 (4.50-11.00) K/uL RBC 2.94 L (4.00-5.20) m/uL Hgb 9.6 L (12.0-16.0) gm/dL Hct 29.6 L (33.0-51.0) % MCV 101 H (80-100) fL MCH 33 (26-34) pg MCHC 32 (32-36) gm/dL RDW Coeff of Ivone 17.4 H (11.5-15.5) % Plt Count 350 (140-440) K/uL Neut % (Auto) 74.7 H (42.0-72.0) % Lymph % (Auto) 7.8 L (20-44) % [place] % (Auto) 15.6 H (0.0-11.0) % Eos % (Auto) 0.9 (0.0-7.0) % Baso % (Auto) 0.3 (0.0-3.0) % Neut # (Auto) 6.70 (1.7-7.0) K/uL Lymph # (Auto) 0.70 L (0.90-2.90) K/uL [place] # (Auto) 1.40 H (0.00-0.90) K/UL Eos # (Auto) 0.08 (0.00-0.50) K/uL Baso # (Auto) 0.03 (0.00-0.30) K/uL Abs Immat Gran (auto) 0.06 (0.00-0.30) K/uL Imm/Tot Granulo (auto) 0.7 % Sodium 136 (135-149) mmol/L Potassium 3.7 (3.6-5.1) mmol/L Chloride 100 (96-114) mmol/L Carbon Dioxide 29 (20-32) mmol/L BUN 15 (7-30) mg/dL Creatinine 0.5 (0.5-1.5) mg/dL Estimated Creat Clear 46.40 Estimated GFR 104 ml/min Glucose 116 H (60-115) mg/dL Lactate 0.9 (0.5-1.9) mmol/L Calcium 9.3 (8.4-10.6) mg/dL Magnesium 1.7 (1.5-2.6) mg/dL Total Bilirubin 0.6 (0.1-1.5) mg/dL AST 21 (12-35) U/L ALT 13 (4-35) U/L Alkaline Phosphatase 133 (40-150) U/L Troponin I < 0.01 L (0.01-0.04) ng/mL NT-Pro-B Natriuret Pep 83 pg/mL Total Protein 7.2 (6.0-8.3) g/dL Albumin 4.1 (3.3-5.0) g/dL Procalcitonin 0.12 (<0.50) ng/mL Urine Color Yellow (Yellow) Urine Appearance Clear (Clear) Urine pH 7.0 (5.0-8.5) Ur Specific [place] 1.010 (1.000-1.030) Urine Protein Negative (Negative) Urine Glucose (UA) Negative (Negative) Urine Ketones Negative (Negative) Urine Blood Trace-lysed A (Negative) Urine Nitrite Negative (Negative) Urine Bilirubin Negative (Negative) Urine Urobilinogen 0.2 (0.2-1.0) Ur Leukocyte Esterase Negative (Negative) Urine RBC 2-5 A (0-2) Urine WBC 0-2 (0-5) Ur Squamous Epith Cells Few (None-Few) Urine Bacteria None (None) SARS-CoV-2 (PCR) Negative SARS-CoV-2 (Negative) Imaging Data Venous US: Attestation: I have reviewed the pertinent imaging results. Radiologist's impression: Patient: ADRIA BALTAZAR Facility:?[facility] Patient ID:?[id number] Site Patient ID:?[id number]. Site :?[id number] Study:?US Extremity Bilateral LEV BILATERAL-01/27/2023 11:33:06 AM Ordering Physician:?Prabha Arellano Final Report: INDICATION: EDEMA, ACTIVE LUNG CA COMPARISON: CT-PET 11/13/2022 TECHNIQUE: A compression venous ultrasound exam was performed of the left lower extremity using abreu-scale imaging, color Doppler and spectral Doppler analysis. FINDINGS: Sonographic imaging of the left lower extremity demonstrates normal compressibility and color Doppler venous blood flow within the common femoral vein, deep femoral vein, and the proximal greater saphenous vein. Within the thigh, the femoral vein is patent and compressible. At a lower level, the popliteal and posterior tibial veins also show normal compressibility and color Doppler venous blood flow. Limited imaging of the contralateral groin demonstrates a normal spectral waveform and color Doppler venous blood flow within the right common femoral vein. Incidental epidermoid inclusion cyst or sebaceous cyst within the upper medial thigh measuring 1.5 x 1.2 x 1.9 cm. This was present on the prior CT PET exam and did not demonstrate any uptake. IMPRESSION: No evidence of deep vein thrombosis within the left lower extremity. Dictated by Antoni Byers MD @ 01/27/2023 11:49:42 AM (Electronic Signature) ECG Data Attestation: I personally reviewed and interpreted this ECG as follows: (Normal sinus rhythm, 82 beats per minute. No acute ischemia. QT corrected 450 m illiseconds.) Discharge Plan Discharge Clinical Impression: Squamous cell carcinoma of left lung, Weakness Patient Disposition: Home w/ Parent or Adult Condition: Stable Instructions: Weakness (ED) Additional Instructions: Labs were reassuring here today, no hyponatremia. The ultrasound of your left lower extremity did not show any blood clot. I do think you need to drink more fluids. You seem to feel better with IV fluids and this could be evidence of some dehydration. Tried to take some more frequent small sips of fluids throughout the day while awake, this will potentially help you stay hydrated better. Follow-up with Oncology as previously planned. Activity Level: Activity as Tolerated Discharge Diet: Regular Prescriptions: No Action ondansetron HCl 8 mg tablet 8 mg PO Q8H PRN (Reason: nausea and vomiting) Qty: 40 1RF Rx Instructions: Take for chemo-related nausea starting 24 hours after chemo, if prochlorperazine (compazine) ineffective. diphenhydramine HCl [Benadryl] 25 mg capsule 25 mg PO TID PRN famotidine [Pepcid] 20 mg tablet 20 mg PO QDAY PRN oxycodone 5 mg capsule 2.5 mg PO Q6H PRN Calcium 600 with Vitamin D3 600 mg-10 mcg (400 unit) tablet,chewable 1 tab PO BIDWMEAL Qty: 100 0RF fluticasone propionate 50 mcg/actuation spray,suspension 1 spray intranasal DAILY multivitamin Tablet 1 tab PO QDAY cetirizine 10 mg tablet 10 mg PO DAILY prochlorperazine maleate 10 mg tablet 5 mg PO Q6H PRN sennosides [Senna Lax] 8.6 mg tablet 8.6 mg PO BID PRN naproxen sodium [Aleve] 220 mg capsule 220 mg PO BID PRN acetaminophen [Tylenol Extra Strength] 500 mg tablet 500 mg PO Q4-6H PRN loperamide [Imodium A-D] 2 mg capsule 2 mg PO Q6H PRN Patient Comments: hasn't needed albuterol sulfate 90 mcg/actuation HFA aerosol inhaler 2 puff inhalation Q4-6H PRN (Reason: shortness of breath or wheezing) Qty: 6.7 2RF Trelegy Ellipta 100-62.5-25 mcg blister with device 1 inh inhalation DAILY Qty: 60 5RF sertraline 25 mg tablet 50 mg PO QDAY Qty: 180 0RF Follow Up/Referrals: Cheryl Harrison MD [Primary Care Provider] - Stand Alone Forms: [employer] Info Instructions
[2023-01-27 10:30] VITALS: O2SAT 95
--- NOTE | 2023-01-27 10:38 | CRLHL7_ITS ---
For Patients: As a result of the Century Cures Act, medical imaging exams and procedure reports are released immediately into your electronic medical record. You may view this report before your referring provider. If you have questions, please contact your health care provider. INDICATION: EDEMA, ACTIVE LUNG CA COMPARISON: CT-PET 11/13/2022 TECHNIQUE: A compression venous ultrasound exam was performed of the left lower extremity using abreu-scale imaging, color Doppler and spectral Doppler analysis. FINDINGS: Sonographic imaging of the left lower extremity demonstrates normal compressibility and color Doppler venous blood flow within the common femoral vein, deep femoral vein, and the proximal greater saphenous vein. Within the thigh, the femoral vein is patent and compressible. At a lower level, the popliteal and posterior tibial veins also show normal compressibility and color Doppler venous blood flow. Limited imaging of the contralateral groin demonstrates a normal spectral waveform and color Doppler venous blood flow within the right common femoral vein. Incidental epidermoid inclusion cyst or sebaceous cyst within the upper medial thigh measuring 1.5 x 1.2 x 1.9 cm. This was present on the prior CT PET exam and did not demonstrate any uptake. IMPRESSION: No evidence of deep vein thrombosis within the left lower extremity. Dictated by Antoni Byers MD @ 01/27/2023 11:49:42 AM (Electronically Signed)
[2023-01-27 10:52] LABS: Lactate* 0.9 mmol/L (0.5-1.9)
[2023-01-27 10:53] LABS: Basophils Absolute Auto 0.03 K/uL (0.00-0.30); Basophils Percent Auto 0.3 % (0.0-3.0); Eosinophils Absolute Auto 0.08 K/uL (0.00-0.50); Eosinophils Percent Auto 0.9 % (0.0-7.0); Hematocrit 29.6 % (33.0-51.0); Hemoglobin* 9.6 gm/dL (12.0-16.0); Immature Granulocytes Abs Auto 0.06 K/uL (0.00-0.30); Immature Granulocytes Pct Auto 0.7 %; Lymphocytes Percent Auto 7.8 % (20-44); Mean Corpuscular HGB Conc 32 gm/dL (32-36); Mean Corpuscular Hemoglobin 33 pg (26-34); Mean Corpuscular Volume 101 fL (80-100); Monocytes Percent Auto 15.6 % (0.0-11.0); Neutrophils Percent Auto 74.7 % (42.0-72.0); Platelet Count* 350 K/uL (140-440); RDW Coefficient of Variation % 17.4 % (11.5-15.5); Red Blood Count 2.94 m/uL (4.00-5.20); White Blood Count* 9.03 K/uL (4.50-11.00)
[2023-01-27 10:55] LABS: Slide Review Reflex No
[2023-01-27] MEDS: 0.9 % SODIUM CHLORIDE 1000 ml 1,000 ML 500 ML IV (10:55)
[2023-01-27 11:09] LABS: Albumin* 4.1 g/dL (3.3-5.0); Chloride* 100 mmol/L (96-114); Potassium* 3.7 mmol/L (3.6-5.1); Sodium* 136 mmol/L (135-149)
[2023-01-27 11:12] LABS: Alanine Aminotransferase* 13 U/L (4-35); Alkaline Phosphatase* 133 U/L (40-150); Aspartate Amino Transferase* 21 U/L (12-35); Bilirubin Total* 0.6 mg/dL (0.1-1.5); Blood Urea Nitrogen* 15 mg/dL (7-30); Carbon Dioxide* 29 mmol/L (20-32); Creatinine* 0.5 mg/dL (0.5-1.5); Estimated Glomerular Filt Rate 104 ml/min; Glucose* 116 mg/dL (60-115); Total Protein* 7.2 g/dL (6.0-8.3)
[2023-01-27 11:13] LABS: Calcium* 9.3 mg/dL (8.4-10.6); Magnesium* 1.7 mg/dL (1.5-2.6)
[2023-01-27 11:28] LABS: NT Pro B Type NatriureticPept* 83 pg/mL; Troponin I* < 0.01 ng/mL (0.01-0.04)
[2023-01-27 11:29] LABS: Procalcitonin* 0.12 ng/mL (<0.50)
[2023-01-27 11:29] LABS: SARS PCR* Negative SARS-CoV-2 (Negative)
[2023-01-27 13:39] LABS: Appearance Urine Clear (Clear); Bilirubin Urine Negative (Negative); Blood Urine Trace-lysed (Negative); Color Urine Yellow (Yellow); Glucose Urine Negative (Negative); Ketones Urine Negative (Negative); Leukocyte Esterase Urine Negative (Negative); Nitrite Urine Negative (Negative); Protein Urine Negative (Negative); Urobilinogen Urine 0.2 (0.2-1.0)
[2023-01-27 13:48] LABS: Squamous Epithelial Cell Urine Few (None-Few); WBC Urine 0-2 (0-5)
[2023-01-27] MEDS: 0.9 % SODIUM CHLORIDE 500 ML 500 ML IV (13:59)
[2023-01-27 14:30] VITALS: BP 124/81; PULSE 86; RESP 20; O2SAT 94
== END 2023-01-27 15:03 | disposition home or self-care (01) ==
PROVIDERS: Emergency Provider Family Medicine; PCP Family Medicine
DX: C34.92 Malignant neoplasm of unspecified part of left bronchus or lung (principal); R53.1 Weakness; R60.0 Localized edema
CPT/HCPCS: 36415; 80053; 81001; 83605; 83735; 83880; 84145; 84484; 85025; 87635; 93005; 93970; 94761; 96360; 96361; 99284; 99285; J7030; J7120

== ENCOUNTER 2023-01-28 13:47 | Outpatient (CLI) | payer MEDICARE, SELFPAY | END 2023-01-28 13:48 | disposition home or self-care (01) | LOC: AMB 02-08 14:07 | PROVIDERS: PCP Family Medicine; Visit Provider Emergency Medicine Emergency Medical Services | DX: R11.2 Nausea with vomiting, unspecified (principal); R53.1 Weakness | CPT/HCPCS: A0425; A0427 ==

== ENCOUNTER 2023-01-28 14:30 | Inpatient (IN) | payer MEDICARE, SELFPAY ==
[2023-01-28 14:36] VITALS: BP 129/83; PULSE 93; O2SAT 91
[2023-01-28 14:40] VITALS: BP 141/77; PULSE 94; RESP 20; TEMP 36.6; O2SAT 91; BMI 27.5
[2023-01-28 15:00] VITALS: BP 126/90; PULSE 91; RESP 20; TEMP 36.6; O2SAT 91
[2023-01-28 15:30] VITALS: BP 124/72; PULSE 90; O2SAT 90
--- NOTE | 2023-01-28 15:31 | ED.GENADULT ---
HPI - General Adult General Chief complaint: Nausea/Vomiting Stated complaint: weakness Time Seen by Provider: 01/28/23 14:40 History of Present Illness HPI narrative: This 67-year-old woman comes in by ambulance because of weakness and vomiting. She was seen last evening for similar circumstances and since returning home has not been able to function well. Her and her have been in discussion all day with renal social worker regarding various options. Her states that he is simply unable to care for her any longer at home. 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 She had a thorough workup yesterday and within the last several days she has had ultrasound and CT imaging studies done also. She has had palliative radiation. She returns here by ambulance seeking a longer-term solution for care for her symptoms. academic services coordinator has been involved today and did bring hospice care but the patient and her are not yet interested in this. They return here in a process of seeking long-term care somewhere. Related Data Home Medications Medication Instructions Recorded Confirmed cetirizine 10 mg tablet 10 mg PO DAILY 01/08/22 01/02/23 fluticasone propionate 50 1 spray intranasal DAILY 01/08/22 01/02/23 mcg/actuation nasal spray,suspension multivitamin 1 tab PO QDAY 01/08/22 01/02/23 prochlorperazine maleate 10 mg 5 mg PO Q6H PRN 08/13/22 01/02/23 tablet acetaminophen 500 mg tablet 500 mg PO Q4-6H PRN 08/27/22 01/02/23 (Tylenol Extra Strength) naproxen sodium 220 mg capsule 220 mg PO BID PRN 08/27/22 01/02/23 (Aleve) sennosides 8.6 mg tablet (Senna 8.6 mg PO BID PRN 08/27/22 01/02/23 Lax) loperamide 2 mg capsule (Imodium 2 mg PO Q6H PRN 09/02/22 01/02/23 A-D) diphenhydramine HCl 25 mg capsule 25 mg PO TID PRN 10/09/22 01/02/23 (Benadryl) famotidine 20 mg tablet (Pepcid) 20 mg PO QDAY PRN 10/09/22 01/02/23 oxycodone 5 mg capsule 2.5 mg PO Q6H PRN 01/02/23 01/02/23 Previous Rx's Medication Instructions Recorded ondansetron HCl 8 mg tablet 8 mg PO Q8H PRN nausea and 09/18/22 vomiting #40 tabs albuterol sulfate 90 mcg/actuation 2 puff inhalation Q4-6H PRN 09/22/22 aerosol inhaler shortness of breath or wheezing #6.7 grams fluticasone fur. 100 mcg-umeclid 1 inh inhalation DAILY #60 ea 09/22/22 62.5 mcg-vilant 25 mcg inhalat.powder (Trelegy Ellipta) sertraline 25 mg tablet 50 mg (2 x 25 mg) PO QDAY #180 tabs 01/01/23 calcium carbonate 600 mg-vitamin 1 tab PO BIDWMEAL #100 tabs 01/05/23 D3 10 mcg (400 unit) chewable tablet (Calcium 600 with Vitamin D3) Allergies Allergy/AdvReac Type Severity Reaction Status Date / Time Penicillins Allergy Mild Familial Verified 01/26/23 13:01 anaphylactic reaction Review of Systems Status of ROS: Reports: 10 or more systems reviewed and unremarkable except as noted in History and below Narrative: Constitutional: No fevers, no weight gain or loss. Generalized weakness. Eyes: No discharge. No vision changes. HENT: No congestion, no sore throat, no ear pain. Cardiovascular: No chest pain, no palpitations. Respiratory: No shortness of breath, no wheezes, no cough. Gastrointestinal: No abdominal pain, no diarrhea. Nausea and vomiting. Genitourinary: No dysuria, no hematuria. Musculoskeletal: Normal range of motion. Skin: No rashes, no pruritis. Neurological: No dizziness, sensory change, speech change. Endo/Heme/Allergies: No bruising or bleeding. No polydipsia. Pysch: no suicidality, no anxiety, no insomnia. All other systems reviewed and are negative. [facility] Medical History Hyponatremia ?E87.1 - Hypo-osmolality and hyponatremia (ICD-10) Constipation ?K59.00 - Constipation, unspecified (ICD-10) Cancer associated pain ?G89.3 - Neoplasm related pain (acute) (chronic) (ICD-10) Metastasis to lymph nodes ?C77.9 - Secondary and unspecified malignant neoplasm of lymph node, unspecified (ICD-10) Bone metastases ?C79.51 - Secondary malignant neoplasm of bone (ICD-10) Liver metastases ?C78.7 - Secondary malignant neoplasm of liver and intrahepatic bile duct (ICD-10) Allergic rhinitis ?J30.9 - Allergic rhinitis, unspecified (ICD-10) Short of breath on exertion ?R06.02 - Shortness of breath (ICD-10) Moderate COPD (chronic obstructive pulmonary disease) (2019) ?J44.9 - Chronic obstructive pulmonary disease, unspecified (ICD-10) Insomnia ?G47.00 - Insomnia, unspecified (ICD-10) Hemorrhage into subarachnoid space of neuraxis (2016) ?I60.9 - Nontraumatic subarachnoid hemorrhage, unspecified (ICD-10) Depression ?F32.A - Depression, unspecified (ICD-10) Cognitive deficit following cerebrovascular accident (CVA) ?I69.319 - Unspecified symptoms and signs involving cognitive functions following cerebral infarction (ICD-10) Surgical History Status post ventriculoperitoneal shunt (2016) ?Z98.2 - Presence of cerebrospinal fluid drainage device (ICD-10) History of eye surgery (1959) ?Z98.890 - Other specified postprocedural states (ICD-10) History of cholecystectomy ?Z90.49 - Acquired absence of other specified parts of digestive tract (ICD-10) History of cerebral aneurysm repair (2016) ?Z98.890 - Other specified postprocedural states (ICD-10) ?Z86.79 - Personal history of other diseases of the circulatory system (ICD-10) Family History Father Basal cell carcinoma Coronary artery disease Pacemaker Mother Basal cell carcinoma Aunt Breast cancer Other Colonic polyp Social History Narrative: Does not have regular exercise regimen but walks a lot at work Ex-smoker. 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 HEENT: Normocephalic, atraumatic. She has a dry mouth. Neck: Normal range of motion. Nontender. Supple. Heart: Regular. No murmurs. Normal rate. Intact distal pulses. Lungs: Clear to auscultation. No chest discomfort. No wheezes, rhonchi, or rales. Abdomen: Normal bowel sounds. Nontender. No rebound tenderness. Genitalia: Deferred. Back: No midline tenderness. Normal range of motion. Extremities: Normal range of motion. No injury. No pedal edema. Skin: Intact. No rash. Warm. No erythema or pallor. Neurologic: No altered sensation. No weakness. Alert and oriented. Psychiatric: No suicidality. No anxiety or depression. No insomnia. Nursing notes and vitals signs are reviewed. Const: Vital Signs, click to edit/add: Vital Signs - 24 hr 01/28/23 14:40 Temperature 97.8 F Pulse Rate [Pulse Oximeter] 94 Respiratory Rate 20 Blood Pressure [Le ft Upper Arm] 141/77 H Pulse Oximetry 91 Oxygen Delivery Me thod Room Air Course Vital Signs Vital signs: Initial Vital Signs Temperature 97.8 F 01/28/23 14:40 Temperature Source Temporal Artery Scan 01/28/23 14:40 Pulse Rate 94 01/28/23 14:40 Respiratory Rate 20 01/28/23 14:40 Blood Pressure 141/77 H 01/28/23 14:40 Blood Pressure Mean 98 01/28/23 14:40 Pulse Oximetry 91 01/28/23 14:40 Oxygen Delivery Method Room Air 01/28/23 14:40 Vital Signs Temperature 97.8 F 01/28/23 14:40 Pulse Rate 94 01/28/23 14:40 Respiratory Rate 20 01/28/23 14:40 Blood Pressure 141/77 H 01/28/23 14:40 Pulse Oximetry 91 01/28/23 14:40 Oxygen Delivery Method Room Air 01/28/23 14:40 Temperature 97.8 F 01/28/23 14:40 Pulse Rate 94 01/28/23 14:40 Respiratory Rate 20 01/28/23 14:40 Blood Pressure 141/77 H 01/28/23 14:40 Pulse Oximetry 91 01/28/23 14:40 Oxygen Delivery Method Room Air 01/28/23 14:40 Medical Decision Making MDM Narrative Medical decision making narrative: This patient returns to the emergency department after visiting yesterday for similar circumstances. She returned home today and she and her both agree that resources at home are not sufficient to care for her needs and they are interested in long-term care options. They have been in touch with clinical social work aide through the day in this regard. The patient does arrive here with an IV in place. I did order a L of D5 half-normal saline. I did not do any further imaging or studies as these were done in the last few days. I did speak with the hospitalist software configuration manager, Dr. Miranda, who agrees to her admission for placement in some kind of fpc care facility. Discharge Plan Discharge Clinical Impression: Squamous cell carcinoma of left lung, Liver metastases, Bone metastases, Weakness Patient Disposition: Admitted As Inpatient Condition: Unchanged Prescriptions: No Action ondansetron HCl 8 mg tablet 8 mg PO Q8H PRN (Reason: nausea and vomiting) Qty: 40 1RF Rx Instructions: Take for chemo-related nausea starting 24 hours after chemo, if prochlorperazine (compazine) ineffective. diphenhydramine HCl [Benadryl] 25 mg capsule 25 mg PO TID PRN famotidine [Pepcid] 20 mg tablet 20 mg PO QDAY PRN oxycodone 5 mg capsule 2.5 mg PO Q6H PRN Calcium 600 with Vitamin D3 600 mg-10 mcg (400 unit) tablet,chewable 1 tab PO BIDWMEAL Qty: 100 0RF fluticasone propionate 50 mcg/actuation spray,suspension 1 spray intranasal DAILY multivitamin Tablet 1 tab PO QDAY cetirizine 10 mg tablet 10 mg PO DAILY prochlorperazine maleate 10 mg tablet 5 mg PO Q6H PRN sennosides [Senna Lax] 8.6 mg tablet 8.6 mg PO BID PRN naproxen sodium [Aleve] 220 mg capsule 220 mg PO BID PRN acetaminophen [Tylenol Extra Strength] 500 mg tablet 500 mg PO Q4-6H PRN loperamide [Imodium A-D] 2 mg capsule 2 mg PO Q6H PRN Patient Comments: hasn't needed albuterol sulfate 90 mcg/actuation HFA aerosol inhaler 2 puff inhalation Q4-6H PRN (Reason: shortness of breath or wheezing) Qty: 6.7 2RF Trelegy Ellipta 100-62.5-25 mcg blister with device 1 inh inhalation DAILY Qty: 60 5RF sertraline 25 mg tablet 50 mg PO QDAY Qty: 180 0RF Follow Up/Referrals: Cheryl Harrison MD [Primary Care Provider] -
[2023-01-28] MEDS: 5 % DEXTROSE/0.45% SOD CHLOR 1,000 ML 1000 ML IV (15:45)
[2023-01-28 16:00] VITALS: BP 132/83; PULSE 94; O2SAT 90
--- NOTE | 2023-01-28 16:45 | P.IMHP_ITS ---
Hospitalist- H&P: HPI History of Present Illness Date Seen: 01/28/23 Chief complaint: weakness Narrative: Sherri Gutierrez is a 67 year old female with pmhx noted below including hx of metastatic non-small cell lung cancer, squamous cell with metastases to liver, lymph nodes, bone--> radiation to T7/T8, 08/13/2022-08/20/2022 + single fraction radiation to left sacrum and tumor in the left 6th rib completed 08/13/2022+ single fraction radiation therapy to right femur completed 08/19/2022, single fraction radiation to tumor in the left 8th rib completed on 08/19/2022---> started carbo Taxol and pembrolizumab on 08/28/2022-> unfortunately significant toxicity and infusion reaction with cycle 2 where she only received pembrolizumab and 15 minutes of paclitaxel-->s/p 5 treatments of carbo and taxol and 6 total of keytruda till 01/02/23, and Pall XRT to T1 and right 7th rib who is presenting to ED for evaluation of progressive decline. The patient was orignally seen in the ED yesterday and evaluated for dehydration. She improved with IVF. She lives with her who can no longer take care of her at home. She has had decreased appetite and nausea and vomiting. She has had progressive weakness and diffuse bone pain. She presented to ED today with hopes of admission and assistance for long care treatment. I discussed options with patient including the option of transitioning to comfort care and consideration for hospice evaluation. The patient was agreeable and stated she wanted no additional diagnostic testing (labs, imaging, etc) with primary goal of focusing on pain and symptom management. Per marc she had CT chest on 01/26 noted below notable for . Additional new/enlarging nodules within the left upper lobe are present which measure up to 1.6 cm. Multifocal metastatic foci throughout the skeletal system. Possible new lesion within the right 2nd rib. Subacute left-sided rib fractures. There is no anterior rib fracture to explain the current symptoms. Possible mild increased conspicuity of the known intrahepatic metastatic lesions which measure up to 2. 4 cm. Impression: Similar left perihilar mass. Additional new/enlarging nodules within the left upper lobe are present which measure up to 1.6 cm. Persistent mediastinal and left hilar adenopathy which is probably similar to the recent CT PET scan. Multifocal metastatic foci throughout the skeletal system. Possible new lesion within the right 2nd rib. Subacute left-sided rib fractures. There is no anterior rib fracture to explain the current symptoms. Possible mild increased conspicuity of the known intrahepatic metastatic lesions which measure up to 2.4 cm. Review of Systems Status of ROS: Reports: 10 or more systems reviewed and unremarkable except as noted in History and below [facility] Medical History Hyponatremia ?E87.1 - Hypo-osmolality and hyponatremia (ICD-10) Constipation ?K59.00 - Constipation, unspecified (ICD-10) Cancer associated pain ?G89.3 - Neoplasm related pain (acute) (chronic) (ICD-10) Metastasis to lymph nodes ?C77.9 - Secondary and unspecified malignant neoplasm of lymph node, unspecified (ICD-10) Bone metastases ?C79.51 - Secondary malignant neoplasm of bone (ICD-10) Liver metastases ?C78.7 - Secondary malignant neoplasm of liver and intrahepatic bile duct (ICD-10) Allergic rhinitis ?J30.9 - Allergic rhinitis, unspecified (ICD-10) Short of breath on exertion ?R06.02 - Shortness of breath (ICD-10) Moderate COPD (chronic obstructive pulmonary disease) (2019) ?J44.9 - Chronic obstructive pulmonary disease, unspecified (ICD-10) Insomnia ?G47.00 - Insomnia, unspecified (ICD-10) Hemorrhage into subarachnoid space of neuraxis (2016) ?I60.9 - Nontraumatic subarachnoid hemorrhage, unspecified (ICD-10) Depression ?F32.A - Depression, unspecified (ICD-10) Cognitive deficit following cerebrovascular accident (CVA) ?I69.319 - Unspecified symptoms and signs involving cognitive functions following cerebral infarction (ICD-10) Surgical History Status post ventriculoperitoneal shunt (2015) ?Z98.2 - Presence of cerebrospinal fluid drainage device (ICD-10) History of eye surgery (1959) ?Z98.890 - Other specified postprocedural states (ICD-10) History of cholecystectomy ?Z90.49 - Acquired absence of other specified parts of digestive tract (ICD- 10) History of cerebral aneurysm repair (2016) ?Z98.890 - Other specified postprocedural states (ICD-10) ?Z86.79 - Personal history of other diseases of the circulatory system (ICD- 10) Family History Father Basal cell carcinoma Coronary artery disease Pacemaker Mother Basal cell carcinoma Aunt Breast cancer Other Colonic polyp Social History Narrative: Does not have regular exercise regimen but walks a lot at work Ex-smoker. 40 pack year, quit 2016 Rarely consumes alcohol [employer], [employer] [place], no kids What is your current living situation?: I presently have a place to live Problems where you live: no known problems Problems where you live details: None In the past 12 months, utilities in danger of being shut off: no In the past 12 mos, have been you worried that your food would run out before you had money to buy more?: never true In the past 12 mos, the food you bought just didn't last and you didn't have money to buy more?: never true Highest level of school completed/degree received: high school graduate Smoking Status: Former smoker What tobacco products do you use: cigarettes Smoking quit date/years: <= 15 years ago Do you use any of these nicotine containing products: None Second hand tobacco smoke exposure: No How often do you have a drink containing alcohol: monthly or less How often do you have six or more drinks on one occasion: Never AUDIT-C Alcohol total score: 1 Non-prescribed substance use: denies use Caffeine: No How often does anyone, including family, friends and others, physically hurt you : never How often does anyone, including family, friends and others, insult or talk down to you: never How often does anyone, including family, friends and others, threaten you with harm: never How often does anyone, including family, friends and others, scream or curse at you: never Little interest or pleasure in doing things: nearly every day Feeling down, depressed, or hopeless: nearly every day service: No Meds Home Medications and Allergies Home Medications Medication Instructions Recorded Confirmed Type cetirizine 10 mg tablet 10 mg PO DAILY 01/08/22 01/28/23 History fluticasone propionate 50 1 spray intranasal DAILY PRN 01/08/22 01/28/23 History mcg/actuation nasal spray,suspension multivitamin 1 tab PO DAILY 01/08/22 01/28/23 History prochlorperazine maleate 10 mg 10 mg PO Q6H PRN 08/13/22 01/28/23 History tablet acetaminophen 500 mg tablet 500 - 1,000 mg PO Q6H PRN 08/27/22 01/28/23 History (Tylenol Extra Strength) naproxen sodium 220 mg capsule 220 mg PO BID PRN 08/27/22 01/28/23 History (Aleve) sennosides 8.6 mg tablet (Senna 8.6 mg PO BID PRN 08/27/22 01/28/23 History Lax) loperamide 2 mg capsule (Imodium 2 - 4 mg PO Q6H PRN 09/02/22 01/28/23 History A-D) diphenhydramine HCl 25 mg capsule 25 mg PO TID PRN 10/09/22 01/28/23 History (Benadryl) famotidine 20 mg tablet (Pepcid) 20 mg PO DAILY PRN 10/09/22 01/28/23 History oxycodone 5 mg capsule 2.5 mg PO Q6H PRN 01/02/23 01/28/23 History albuterol sulfate 90 mcg/actuation 2 puff inhalation Q4H PRN 01/28/23 01/28/23 History aerosol inhaler shortness of breath or wheezing oxycodone 5 mg tablet 2.5 mg PO Q6H PRN pain 01/28/23 01/28/23 History sertraline 50 mg tablet 50 mg PO DAILY 01/28/23 01/28/23 History Allergies Allergy/AdvReac Type Severity Reaction Status Date / Time Penicillins Allergy Mild Familial Verified 01/26/23 13:01 anaphylactic reaction Exam Narrative: Exam Narrative: Gen: no acute distress HEENT: NCAT EOMI mmm Neck: Supple CV: RRR normal s1 s2 Lungs: CTAB Abd: Soft,nt, nd Neuro: Alert, oriented, CN grossly intact; nonfocal screening?exam Psych: appropriate affect MSK: age appropriate muscle mass Skin; Warm, dry no rash on face Const: Vital Signs, click to edit/add: Vital Signs - 24 hr 01/28/23 14:40 Temperature 97.8 F Pulse Rate [Pulse Oximeter] 94 Respiratory Rate 20 Blood Pressure [Le ft Upper Arm] 141/77 H Pulse Oximetry 91 Oxygen Delivery Me thod Room Air Assessment and Plan Assessment and plan (1) Squamous cell carcinoma of left lung: Status: Acute (2) Bone metastases: Status: Acute (3) Metastasis to lymph nodes: Status: Acute (4) Liver metastases: Status: Acute (5) Cancer associated pain: Status: Resolved (6) Depression: Problem comment: initiated sertraline 09/02/2022 Status: Chronic Plan Sherri Gutierrez is a 67 year old female with hx of metastatic non-small cell lung cancer, squamous cell with metastases to liver, lymph nodes, bone who is presenting to ED for evaluation of progressive decline. The patient was orignally seen in the ED yesterday and evaluated for dehydration. She improved with IVF. She lives with her who can no longer take care of her at home. She has had decreased appetite and nausea and vomiting. She has had progressive weakness and diffuse bone pain. She presented to ED today with hopes of admission and assistance for long care treatment. I discussed options with patient including the option of transitioning to comfort care and consideration for hospice evaluation. The patient was agreeable and stated she wanted no add itional diagnostic testing (labs, imaging, etc) with primary goal of focusing on pain and symptom management. Per chert she had CT chest on 01/26 noted below notable for . Additional new/enlarging nodules within the left upper lobe are present which measure up to 1.6 cm. Multifocal metastatic foci throughout the skeletal system. Possible new lesion within the right 2nd rib. Subacute left-s ided rib fractures. There is no anterior rib fracture to explain the current symptoms. Possible mild increased conspicuity of the known intrahepatic metastatic lesions which measure up to 2.4 cm. 1. metatstatic NSCLC undergoing keytruda infusion and palliative XRT -patient elects to transition to comfort care; comfort care orders initiated -began discussion of hospice care, patient would like to discuss anticipated transition/enrollment to hospice care -SW consulted for placement options as she requires minimum 2 assist and can no longer provide adequate care at home Code-DNR/DNI
[2023-01-28] MEDS: ONDANSETRON 2 MG/ML inj IVP (17:37)
[2023-01-28 18:09] VITALS: BP 131/85; PULSE 88; RESP 12; RESP 16; TEMP 36.9; O2SAT 96
[2023-01-28] MEDS: PROCHLORPERAZINE 5 MG/ML VIAL IV (18:55)
[2023-01-28] MEDS: diphenhydrAMINE 50 MG/ML inj 25 MG IVP (18:55)
[2023-01-28] MEDS: LACTATED RINGERS 1000 ML 1,000 ML IV (18:56)
--- NOTE | 2023-01-28 19:03 | PC.NURSE ---
Arrived to the floor @ 1710. No symptoms of nausea or pain when she arrived. during my assessment she started throwing up roughly 25cc and some unmeasured of yellow bile. She reports not eating since 1400 on Thursday01/26/23. 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 She reports no pain, she is very weak reports falls recently at home 2 in the last 2 weeks, her has been helping her up. Had a 2nd episode of vomiting about 25 cc. She would like to pursue comfort cares. I gave PRN zofran, Compazine and Benadryl IV at 1900. I am not madeleine how she gets up... needs assessment referrals sent to OT/PT. With movement she reports L shoulder pain. VSS on RA. 1000 ml bolus running of LR over an hour.
[2023-01-28] MEDS: SODIUM CHLORIDE 0.9 % (FLUSH) 10 ML SYRINGE 5 ML IVF (21:44)
--- NOTE | 2023-01-29 06:18 | PC.NURSE ---
Shift note: Pt is on comfort care. Very pleasant and cooperate with care and treatment. At 2030, patient requested to use BR. Pt was transferred with A2 to bedside commode but unable to urinate. Bladder scan was 718. There was an order to straight cath. Nurse suggested to MD to retain catheter for pt's comfort. MD agreed and pt educated about the 2 options of straight cath and retaining and agreed for retaining catheter. Catheter inserted at 2049 and drained 1100ml. Pt had adequate sleep. Had difficulty ambulating with A2, walker and GB.
[2023-01-29 08:30] VITALS: BP 135/78; PULSE 95; RESP 20; TEMP 36.8; O2SAT 92
[2023-01-29] MEDS: SERTRALINE 50 MG TABLET PO (09:02)
[2023-01-29] MEDS: SODIUM CHLORIDE 0.9 % (FLUSH) 10 ML SYRINGE 5 ML IVF ×2 (09:02→22:18)
[2023-01-29] MEDS: ACETAMINOPHEN 325 MG TABLET PO (09:02)
[2023-01-29] MEDS: CETIRIZINE HCL 10 MG TABLET PO (09:02)
--- NOTE | 2023-01-29 10:12 | REH.OT ---
OT: OT/PT orders discontinued per MD due to patient on comfort cares.
--- NOTE | 2023-01-29 11:27 | PC.NURSE ---
Pt calm and appropriate with nsg cares. No dysphagia with medications. Aydee to FANNIE. Romeo has changed pt to comfort cares. VS stable. Up to chair via EZ stand for meals. Tylenol prn 975 mg for c/o right sided discomfort.
[2023-01-29 13:00] VITALS: RESP 20; O2SAT 94
--- NOTE | 2023-01-29 13:52 | PC.SOCIAL ---
Addendum entered by Inge Gilbert LCSW 01/29/23 14:56: Left messages with SNFs: [facility]- awaiting call back J[facility]- awaiting call back Original Note: Discharge Planning: Met with patient, Sherri and , Trevin. Both are in agreement for placement in an SNF. Family request in [place] or close to [place]. This caption writer contacted and faxed packet to [facility] and [facility] [place]. [facility] said that they would not be able to look at admissions until late next week. [facility]/ will reassess their ability to admit and call back tomorrow 01/30/23. Updated family and will continue calling for placement.
--- NOTE | 2023-01-29 13:58 | PM.IMPN1 ---
Progress Note: A&P Assessment and plan (1) Squamous cell carcinoma of left lung: Status: Acute (2) Bone metastases: Status: Acute (3) Metastasis to lymph nodes: Status: Acute (4) Liver metastases: Status: Acute (5) Cancer associated pain: Status: Resolved (6) Depression: Problem details: initiated sertraline 09/02/2022 Status: Chronic Plan - await placement, appreciate input from our SW team Subjective Date Seen: 01/29/23 Interval history: Sherri has no concerns for hospitalist team this morning. She feels that her pain is controlled. Exam Narrative: Exam Narrative: Sitting comfortably in bedside chair, eating breakfast Nontoxic Const: Vital Signs, click to edit/add: Vital Signs - 24 hr 01/28/23 14:36 01/28/23 14:40 01/28/23 15:00 Temperature 97.8 F 97.8 F Pulse Rate Pulse Rate [Pulse Oximeter] 93 94 91 Respiratory Rate 20 20 Blood Pressure Blood Pressure [Le ft Upper Arm] 129/83 141/77 H 126/90 H Blood Pressure [Ri ght Arm] Pulse Oximetry 91 91 91 Oxygen Delivery Me thod Room Air Room Air Room Air 01/28/23 15:30 01/28/23 16:00 01/28/23 18:09 Temperature 98.4 F Pulse Rate Pulse Rate [Pulse Oximeter] 90 94 88 Respiratory Rate 16 Blood Pressure Blood Pressure [Le ft Upper Arm] 124/72 132/83 Blood Pressure [Ri ght Arm] 131/85 Pulse Oximetry 90 90 96 Oxygen Delivery Me thod Room Air Room Air Room Air 01/28/23 18:09 01/29/23 08:30 Temperature 98.3 F Pulse Rate 95 Pulse Rate [Pulse Oximeter] Respiratory Rate 12 20 Blood Pressure 135/78 Blood Pressure [Le ft Upper Arm] Blood Pressure [Ri ght Arm] Pulse Oximetry 96 92 Oxygen Delivery Me thod Room Air Room Air
[2023-01-29 15:00] VITALS: PULSE 87; RESP 20
--- NOTE | 2023-01-29 23:19 | PC.NURSE ---
End of Shift: Pt remained AO throughout shift, pleasant and cooperative. Reported pain in right hand IV, pt adjusted in chair, repositioned, reported improvement. Denied nausea. Pt transferred with EZ stand. Tolerating regular diet, eating about 50% of meals. Bajwa catheter remains in place, draining, patent, free of kinks.
[2023-01-30] MEDS: ACETAMINOPHEN 325 MG TABLET PO ×4 (01:18→21:46)
--- NOTE | 2023-01-30 06:52 | PC.NURSE ---
Alert and oriented x 4. Pain to right anterior ribs reported, patient utilized PRN tylenol with effective results. Bajwa catheter patent draining caitlyn colored urine. Patient slept well.
[2023-01-30] MEDS: OXYCODONE 5 MG TABLET PO (08:22)
[2023-01-30] MEDS: SERTRALINE 50 MG TABLET PO (08:22)
[2023-01-30] MEDS: CETIRIZINE HCL 10 MG TABLET PO (08:22)
--- NOTE | 2023-01-30 13:53 | PC.SOCIAL ---
Addendum entered by Inge Gilbert LCSW 01/30/23 16:24: Pre-Admission Screening still needs to be completed Addendum entered by Inge Gilbert LCSW 01/30/23 16:10: , Trevin in agreement with Sherri going to [facility]. in agreement with payment of five thousand to [facility]. in agreement for Hospice starting. 1st choice of hospice is [facility], 2nd is [facility] and 3rd is [place]. [facility] is now saying they are accessing patient for admission for possibly on Friday 02/02! [facility] will call before end of day on 01/30. Social work to call hospice as soon as we get formal acceptance. Original Note: Discharge Planning: Met with Patient, Sherri. Informed her that [facility] in [place] can accept her for a shared room. Sherri said this was okay with her. She also expressed interest in having Hospice, especially wanting visits for massage and visits from a laboratory technical specialist. Informed spouse, Trevin by phone. He would like to meet to discuss in person with this underwriter. Social work to met with spouse in room.
--- NOTE | 2023-01-30 15:06 | NUTR.NU ---
RD for nursing consult for skin risk screen. PO intake has been poor since admission. Pt with end stage metastatic cancer. Pt sleeping at visit. RN states she has offered yogurt, juice, asked for pt preferences but pt with minimal interest in food. Pt does not complain of N or V. RNs will continue to offer food including supplements. Goal: pt comfort and preference. No additional follow-up planned. Please consult if further assistance desired.
--- NOTE | 2023-01-30 15:33 | PM.IMPN1 ---
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 Disease progressive despite treatment efforts. Patient requests comfort focus treatment it is at this time with DNR DNI resuscitation status. She declines any additional disease directed diagnostic or interventional efforts. Status: Acute (2) Bone metastases: Problem details: Working to control pain and achieving this. Status: Acute (3) Metastasis to lymph nodes: Status: Acute (4) Liver metastases: Status: Acute (5) Cancer associated pain: Problem details: Pain management efforts more successful now. Status: Resolved (6) Depression: Problem details: initiated sertraline 09/02/2022 Status: Chronic Plan 1. Patient and are agreeable to [facility] facility cares with hospice support. 2. Await placement options. Time Spent With Patient Total time spent: 50 minutes Subjective Time Seen by Provider: 13:00 Date Seen: 01/30/23 Interval history: Hospital day 3. Soft patient early this morning and then later in the afternoon when her was here. Patient generally feels improved. Pain better managed if she does not move all that much. She indicates in no uncertain terms that she prefers to go to correction today and start hospice services if at all possible in the near future. initially is reluctant about starting hospice services but as we listened to his concerns and as he listens to his he supports her desire to look into the possibility of initiating hospice services upon discharge from the hospital. He supports our efforts to have [facility] facility level of care. Exam Narrative: Exam Narrative: Appears comfortable when I examine her. No acute distress. Awake, alert, oriented to self, place, time, situation. Friendly, articulate, cooperative. Mood and affect are congruent. Lungs clear to auscultation. Heart tones with regular rhythm. Abdomen with active bowel sounds, soft, nontender. Skin intact. Const: Documenting provider has reviewed patient's vital signs: yes
[2023-01-30 19:00] VITALS: PULSE 87; RESP 18
[2023-01-30] MEDS: SODIUM CHLORIDE 0.9 % (FLUSH) 10 ML SYRINGE 5 ML IVF ×2 (19:06→21:46)
--- NOTE | 2023-01-30 19:07 | PC.NURSE ---
Nursing Care Hours: 2031-0501 Pt this shift alert and oriented, calm and cooperative. Rating pain 6/10 to R side abdomen. Reported from NOC nurse pt declining anything except Acetaminophen. During transfer out of bed, pt showing signs of severe pain. Discussed pain med options and pt agreeable to oxycodone. 10mg out 15mg ordered given, effective but pt drowsy and sleeping most of the day. Pt states this is why I don't like narcotics, they make me too sleepy. Discussed using the smaller dose of oxycodone prior to transfers and PRN instead. Pt agreeable. Bajwa patent, clear dark caitlyn u/o. No BM. Ate bites of breakfast, refused lunch, ordered dinner but pending intake results. No SS of respiratory distress. Hospitalist gave verbal permission to let pt go outside with wheelchair with a CHRISTIANO. Pt was very excited and pleased. Visitors in room at end of shift.
[2023-01-31] MEDS: OXYCODONE 5 MG TABLET PO ×5 (05:15→22:07)
[2023-01-31] MEDS: ACETAMINOPHEN 325 MG TABLET PO (05:16)
--- NOTE | 2023-01-31 06:06 | PC.NURSE ---
Pt is on comfort cares, was repositioned Q2H throughout night, pt reported 3/10 generalized pain, managed with PRN medications. Pt's trujillo catheter is patent and draining 150ml overnight. Pt slept intermittently throughout night. Night uneventful.
[2023-01-31 07:00] VITALS: RESP 18
[2023-01-31] MEDS: CETIRIZINE HCL 10 MG TABLET PO (09:35)
[2023-01-31] MEDS: SERTRALINE 50 MG TABLET PO (09:35)
--- NOTE | 2023-01-31 12:53 | PC.NURSE ---
Nursing Care Hours: 9734-1559 Pt this shift calm and cooperative with cares. Alert and oriented. Pain rated 4/10, treated per eMAR. Pain location in R abdomen and new location bilat legs. Pt believes leg pain is from prolonged bed rest. Quoter did PROM to bilat legs, L > R in tightness and pain. Attempt left arm PROM but IV in wrist prevented wrist extension and when bringing L arm back to side, caused pain in L groin so personal lines underwriter stopped stretches. Allowed to sleep in and then up to chair around 1100 using EZ stand. Tolerated transfer well. Refused meals, snacks, and nutrition supplements d/t decreased appetite. Aydee patent, clear dark caitlyn u/o.
--- NOTE | 2023-01-31 14:03 | PM.IMPN1 ---
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 Disease progressive despite treatment efforts. Patient requests comfort focus treatment it is at this time with DNR DNI resuscitation status. She declines any additional disease directed diagnostic or interventional efforts. Status: Acute (2) Bone metastases: Problem details: Working to control pain and achieving this. Status: Acute (3) Metastasis to lymph nodes: Status: Acute (4) Liver metastases: Status: Acute (5) Cancer associated pain: Problem details: Pain management efforts more successful now. Status: Resolved (6) Depression: Problem details: initiated sertraline 09/02/2022 Status: Chronic Plan 1. Reviewed impression and plans with patient and her . 2. They are agreeable with above stated plans and recommendations. Time Spent With Patient Total time spent: 35 minutes Subjective Time Seen by Provider: 10:00 Date Seen: 01/31/23 Interval history: Hospital day 4. 67-year-old woman with stage IV squamous cell carcinoma of the lung no longer responsive to intervention efforts, with patient now desiring comfort focus treatments only with DNR DNI resuscitation status, declining any additional disease directed diagnostic or interventional efforts. We are currently awaiting residential facility placement with hospice referral. While she generally feels improved, she is still continues to struggle to find comfort at various times due to pain. Pain better managed if she does not move all that much. She again states in no uncertain terms that she prefers [facility] and start hospice services if at all possible in the near future. continues to be supportive of her desires. We continue to await residential facility acceptance and are still working on hospice referral. Exam Narrative: Exam Narrative: I see the patient in the morning and then again in the afternoon. When I see her in the afternoon her is present also. When she is still she appears comfortable. Vision and hearing are grossly normal. Alert and oriented to self, place, time, situation. Friendly, articulate, cooperative. Appears to be at peace. Lungs are clear to auscultation. Heart tones with regular rhythm. Abdomen with active bowel sounds, soft, nontender. Can move extremities. Transfers with standby assist of 1. Const: Vital Signs, click to edit/add: Vital Signs - 24 hr 01/30/23 19:00 01/31/23 07:00 Pulse Rate [Pulse Oximeter] 87 Respiratory Rate 18 18 Documenting provider has reviewed patient's vital signs: yes
[2023-01-31 19:00] VITALS: RESP 20
--- NOTE | 2023-01-31 19:17 | PC.NURSE ---
Nursing Care Hours: [id number] Pt this shift continues to be alert and oriented. Low U/o in bag, dark caitlyn. Lips dry and cracking, teletypewriter installer applying moisturizer and offering sips of water. Pt refused breakfast and lunch, dinner intake pending. No BM. Pt had visitors in the room most of this shift.
[2023-01-31] MEDS: SODIUM CHLORIDE 0.9 % (FLUSH) 10 ML SYRINGE 5 ML IVF (21:19)
--- NOTE | 2023-02-01 06:58 | PC.NURSE ---
Pt is on comfort cares, was repositioned throughout night, pt reported 3/10 left shoulder pain, managed with PRN medications. Pt slept intermittently throughout night. Night uneventful. ??
[2023-02-01 07:00] VITALS: RESP 16
[2023-02-01] MEDS: ACETAMINOPHEN 325 MG TABLET PO (07:58)
[2023-02-01] MEDS: OXYCODONE 5 MG TABLET PO ×2 (07:59→11:54)
[2023-02-01] MEDS: CETIRIZINE HCL 10 MG TABLET PO (07:59)
[2023-02-01] MEDS: SERTRALINE 50 MG TABLET PO (08:00)
--- NOTE | 2023-02-01 17:49 | PM.IMPN1 ---
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 Disease progressive despite treatment efforts. Patient requests comfort focus treatment it is at this time with DNR DNI resuscitation status. She declines any additional disease directed diagnostic or interventional efforts. Status: Acute (2) Bone metastases: Problem details: Working to control pain and achieving this. Status: Acute (3) Metastasis to lymph nodes: Status: Acute (4) Liver metastases: Status: Acute (5) Cancer associated pain: Problem details: Pain management efforts more successful now. Status: Resolved (6) Depression: Problem details: initiated sertraline 09/02/2022 Status: Chronic Plan 1. Continue with comfort focus treatment efforts. 2. Remove IV 3. Anticipate possible transfer tomorrow with hospice referral. 4. Her brother and her brother's family are visiting her today. Answered their questions to their satisfaction. Time Spent With Patient Total time spent: 30 minutes Subjective Time Seen by Provider: 11:00 Date Seen: 02/01/23 Interval history: Hospital day 5. 67-year-old woman with stage IV squamous cell carcinoma of the lung no longer responsive to intervention efforts, with patient now desiring comfort focus treatments only with DNR DNI resuscitation status, declining any additional disease directed diagnostic or interventional efforts. We are currently awaiting halfway facility placement with hospice referral. Patient has no concerns or needs at this time. Indicates she is generally satisfied with current intervention efforts. She again indicates desire to proceed with plans as previously specified, halfway facility placement and hospice referral. Exam Narrative: Exam Narrative: Examined her in her hospital bed. Appears comfortable no acute distress. Examiner multiple times during the course of the day and she is often napping. Alert and oriented to self, place, time, situation. Friendly, articulate, cooperative. No acute distress. Lungs clear to auscultation. Heart tones regular. Abdomen benign. Const: Vital Signs, click to edit/add: Vital Signs - 24 hr 01/31/23 19:00 02/01/23 07:00 Respiratory Rate 20 16 Documenting provider has reviewed patient's vital signs: yes
[2023-02-01 19:25] VITALS: RESP 18
--- NOTE | 2023-02-01 20:09 | PC.NURSE ---
Nursing Care Hours: [id number] Pt this shift alert and oriented, calm and cooperative. C/o pain to R side and bilat legs, rating 4/10, treated per eMAR. Bed bath given, lotion applied. Antiseptic mouth was used. Refused meals and nutrition. Lip moisturizer to dry cracking lips. Visitors with pt most of day. Up to chair for short period.
[2023-02-02] MEDS: OXYCODONE 5 MG TABLET PO (06:53)
[2023-02-02 07:00] VITALS: RESP 16
--- NOTE | 2023-02-02 07:48 | PC.NURSE ---
Pt is on comfort cares, was repositioned throughout night, pt reported 2/10 generalized pain, managed with PRN medications. Pt?s?IV was removed per MD order, catheter was CDI. Pt slept intermittently throughout night. Night uneventful.
[2023-02-02] MEDS: CETIRIZINE HCL 10 MG TABLET PO (11:26)
[2023-02-02] MEDS: SERTRALINE 50 MG TABLET PO (11:26)
--- NOTE | 2023-02-02 14:04 | PC.SOCIAL ---
Discharge Planning: Spouse of patient is unhappy with plan to discharge to [facility] in [place]. Spouse has requested the following: [facility]- Cannot look at admissions until Thursday at earliest [facility] is [facility]- left three ms[facility]- no call back [facility] on [address]- faxed- considering [facility]- no beds Social Work to follow up
--- NOTE | 2023-02-02 15:48 | PC.SOCIAL ---
Discharge Planning: Patient's has decided to take Sherri home tomorrow with [facility] [phone]. Paperwork faxed to [facility]. Patient needs to be transferred by non emergent ambulance- form explained and signed. has number for [facility]. He was also given listing of landfill attendant Care Agencies. plan is to call agencies to assist in caring for his at home. Social work to follow up as needed.
--- NOTE | 2023-02-02 17:09 | P.IMPN_ITS ---
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 Disease progressive despite treatment efforts. Patient requests comfort focus treatment it is at this time with DNR DNI resuscitation status. She declines any additional disease directed diagnostic or interventional efforts. Status: Acute (2) Bone metastases: Problem details: Working to control pain and achieving this. Status: Acute (3) Metastasis to lymph nodes: Status: Acute (4) Liver metastases: Status: Acute (5) Cancer associated pain: Problem details: Pain management efforts more successful now. Status: Resolved (6) Depression: Problem details: initiated sertraline 09/02/2022 Status: Chronic Plan 1. Reviewed impression with patient and 2. Work with health and social care teacher to try to establish safe discharge disposition plan 3. Patient are agreeable with above stated plans and recommendations. Time Spent With Patient Total time spent: 30 minutes Subjective Time Seen by Provider: 11:00 Date Seen: 02/02/23 Interval history: Hospital day 6. 67-year-old woman with stage IV squamous cell carcinoma of the lung no longer responsive to intervention efforts, with patient now desiring comfort focus treatments only with DNR DNI resuscitation status, declining any additional disease directed diagnostic or interventional efforts. We had been awaiting correction facility placement with hospice referral. Patient's has since changed his mind and is considering alternative options. The only correction facility available in the region does not meet his desired specifications for safety. Patient has no concerns or needs at this time. Indicates she is generally satisfied with current intervention efforts. Patient agreeable to try to find alternative arrangements per her 's concerns. Exam Narrative: Exam Narrative: Patient examined in her hospital bed. Appears comfortable. She indicates she is comfortable. Heart tones with regular rhythm, normal S1-S2. Abdomen is benign. Const: Vital Signs, click to edit/add: Vital Signs - 24 hr 02/01/23 19:25 02/02/23 07:00 Respiratory Rate 18 16 Documenting provider has reviewed patient's vital signs: yes
--- NOTE | 2023-02-02 18:52 | PC.NURSE ---
End of Shift: Pt pleasant and cooperative throughout shift. Comfortable in bed,no BM, trujillo catheter in place, patent and draining, free of kinks. at bedside.
[2023-02-02] MEDS: MORPHINE 10 MG/0.5 ML ORAL SOLN PO (19:53)
[2023-02-02 23:00] VITALS: RESP 20; O2SAT 97
--- NOTE | 2023-02-03 05:42 | PC.NURSE ---
Patient alert and oriented x 4. At 1925 call light placed on, patient reporting shortness of breath. Patient's O2 sats 88% on room air, respirations elevated at 28. Patient reports SOB came on suddenly. Repositioned patient in bed, head of bed elevated and oxygen applied at 2L per nasal cannula. O2 sats increased to 91% with oxygen but respirations continued to be elevated. Oxygen increased to 3L and morphine 5mg administered. Patient reported effective results after 20 minutes, O2 sats increased to 95% on 3L and respirations decreased to 20. Denies any other pain at this time. Bowel sounds active x 4 quadrants. Patient's would like to be contacted prior to discharge plan as he wants to make sure that hospice equipment is at the home and ready for patient when she arrives home.
[2023-02-03 08:51] VITALS: O2SAT 96
[2023-02-03] MEDS: SERTRALINE 50 MG TABLET PO (08:51)
[2023-02-03] MEDS: CETIRIZINE HCL 10 MG TABLET PO (08:51)
--- NOTE | 2023-02-03 10:13 | PC.SOCIAL ---
Discharge planning: Plan is for discharge home today with [facility]. has requested pt wait for discharge home by non-emergency ambulance until equipment from hospice has been delivered to home. Called [facility] [phone] and spoke with Denisse who will have director regulatory affairs back with plan for delivery of equipment and what time pt can be discharged home to facilitate a hospice admission at home today. pick up worker to follow up as needed.
--- NOTE | 2023-02-03 14:38 | PC.SOCIAL ---
Addendum entered by Marielle Burroughs WELDING TESTER 02/03/23 15:36: Received call from [facility] stating pt will be placed on waiting list but no availability at this time. Original Note: Discharge plan: Received call from [facility] team who is currently with at his home. [facility] hospice team has been discussing the care they can provide and pt's needs with the . On speaker phone with this school social worker and hospice team, has decided he can not bring pt home and provide needed care even with [facility]port of hispice and hired caregivers. is requesting placement in a hospice facility where [facility] hospice could provide the hospice care. If there is no hospice facility with availability, requested placement at [facility] as back up plan. Called the following faciities with the listed results: 1. [facility] - no availability. 2. [facility] - [phone] left message. awaiting call back. 3. [facility] - Spoke with Jerri. No availability. 4. [facility] - has a bed available, but [facility] can not provide hospice services there. 5. [facility] - left message. 6. [facility] - currently no availability but can place pt on waiting list. Information faxed. 7. [facility] - left message requesting call back on whether the bed available yesterday os still available. brewery cellar worker to follow up as needed.
[2023-02-03 15:00] VITALS: RESP 24; O2SAT 91
--- NOTE | 2023-02-03 15:17 | PM.IMPN1 ---
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 Disease progressive despite treatment efforts. Patient requests comfort focus treatment it is at this time with DNR DNI resuscitation status. She declines any additional disease directed diagnostic or interventional efforts. Status: Acute Assessment and Plan: Working on discharge disposition planning. Unfortunately the plan keeps having to be adjusted. Will continue to work toward a satisfactory resolution. (2) Bone metastases: Problem details: Working to control pain and achieving this. Status: Acute (3) Metastasis to lymph nodes: Status: Acute (4) Liver metastases: Status: Acute (5) Cancer associated pain: Problem details: Pain management efforts more successful now. Status: Resolved (6) Depression: Problem details: initiated sertraline 09/02/2022 Status: Chronic Plan Patient and are agreeable to continue with efforts to find a satisfactory placement at this time. Time Spent With Patient Total time spent: 20 minutes Subjective Time Seen by Provider: 08:00 Date Seen: 02/03/23 Interval history: Hospital day 7. 67-year-old woman with stage IV squamous cell carcinoma of the lung no longer responsive to intervention efforts, with patient now desiring comfort focus treatments only with DNR DNI resuscitation status, declining any additional disease directed diagnostic or interventional efforts. We had been awaiting assisted facility placement with hospice referral. Patient's changed his mind and is considering alternative options. The only assisted facility available in the region does not meet his desired specifications for safety. The plan for today was for the patient to go home with hospice services. When hospice services assess home situation they indicated that the patient being home is not an option. Our nursing home social worker staff will start once again looking for alternative placement for the patient, not in her home. Patient has no concerns or needs at this time. Indicates she is generally satisfied with current intervention efforts. Patient agreeable to try to find alternative arrangements. Exam Narrative: Exam Narrative: Examined in her hospital bed. Appears comfortable. Lungs clear to auscultation. Heart tones with regular rhythm. Abdomen is benign. Const: Vital Signs, click to edit/add: Vital Signs - 24 hr 02/02/23 23:00 02/03/23 08:51 Respiratory Rate 20 Pulse Oximetry 97 96 Oxygen Delivery Me thod Nasal Cannula Room Air Oxygen Flow Rate 3
--- NOTE | 2023-02-03 18:20 | PC.NURSE ---
End of Shift: Patient pleasant and cooperative, soft spoken. Patient has been laying comfortably in bed all shift. Patient declined any pain medication this shift, and did not want to be repositions but was repositioned x2. Patient ordered toast for dinner and is currently working on eating dinner with the help of her . Patient on RA this shift sating low 90's.
[2023-02-03 23:00] VITALS: O2SAT 94
--- NOTE | 2023-02-04 07:31 | PC.NURSE ---
End of shift [id number]: Pleasant and cooperative with cares. Patient having increased pain with repositioning/movement that subsides with rest, declines need for pain medications. O2 sats 94% on room air, denies any shortness of breath or chest pain. Bajwa catheter patient, tubing noted to have pink tinged sediment, urine emptied from bag is dark caitlyn in color and cloudy in appearance. Patient has had sips for fluid intake throughout the shift.
[2023-02-04 08:26] VITALS: RESP 24; RESP 26; O2SAT 88
[2023-02-04] MEDS: SERTRALINE 50 MG TABLET PO (09:05)
[2023-02-04] MEDS: CETIRIZINE HCL 10 MG TABLET PO (09:05)
--- NOTE | 2023-02-04 11:27 | PC.SOCIAL ---
Discharge plan: Pt has been accepted to [facility] for admit tomorrow 02/05/23. Spoke with Cathy at [facility] ([phone]) who confirmed they are scheduled to admit to hospice at [facility] at 11:00. is aware and agrees with this plan. Provided with information on the Important Message from Medicare and answered questions on the appeal process. agrees with this disharge plan. Pt has also been accepted for admit tomorrow to [facility] in [place]. declined this admission due to the distance and requested placement at [facility]. 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
--- NOTE | 2023-02-04 13:39 | P.IMPN_ITS ---
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 Disease progressive despite treatment efforts. Patient requests comfort focus treatment it is at this time with DNR DNI resuscitation status. She declines any additional disease directed diagnostic or interventional efforts. Status: Acute (2) Bone metastases: Problem details: Working to control pain and achieving this. Status: Acute (3) Metastasis to lymph nodes: Status: Acute (4) Liver metastases: Status: Acute (5) Cancer associated pain: Problem details: Pain management efforts more successful now. Status: Resolved (6) Depression: Problem details: initiated sertraline 09/02/2022 Status: Chronic Plan 1. Reviewed impression and plans with patient. She is agreeable. 2. agreeable with above stated plans and recommendations as well. 3. Our social services technician staff is working on yet another discharge disposition plan. Hospice services are on board, from [facility]. Living in her home with her is not an option, due to safety concerns. Looking for a suitable care home facility or inpatient hospice service at at this time. Time Spent With Patient Total time spent: 15 minute Subjective Time Seen by Provider: 09:30 Date Seen: 02/04/23 Interval history: Hospital day 8. 67-year-old woman with stage IV squamous cell carcinoma of the lung no longer responsive to intervention efforts, with patient now desiring comfort focus treatments only with DNR DNI resuscitation status, declining any additional disease directed diagnostic or interventional efforts. We had been awaiting care home facility placement with hospice referral. Patient's changed his mind and is considering alternative options. The only care home facility available in the region did not meet his desired specifications for safety. The next plan, yesterday, was for the patient to go home with hospice services. When hospice services assessed home situation they indicated that the patient being home is not an option. Presently our social services technician staff is now working on yet another discharge plan. Patient has no concerns or needs at this time. Indicates she is generally satisfied with current intervention efforts. Patient agreeable to try to find alternative arrangements. Exam Narrative: Exam Narrative: Examined patient in her hospital bed. She appears comfortable. No acute distress. Lays still in great measure. Lungs clear to auscultation. Heart tones regular. Abdomen benign. Const: Vital Signs, click to edit/add: Vital Signs - 24 hr 02/03/23 15:00 02/03/23 23:00 02/04/23 08:26 Respiratory Rate 24 26 H Pulse Oximetry 91 94 88 Oxygen Delivery Me thod Room Air Room Air Room Air 02/04/23 08:26 Respiratory Rate 24 Pulse Oximetry Oxygen Delivery Me thod Documenting provider has reviewed patient's vital signs: yes
[2023-02-04 15:00] VITALS: RESP 26; O2SAT 90
--- NOTE | 2023-02-04 18:33 | PC.NURSE ---
End of shift: Patient pleasant and cooperative. Patient has been laying comfortably in bed. Patient declines pain medication or repositioning. Patient has taken sips of water, and oral care was performed with mouth swabs. On RA this shift with sats in the low 90's. Patient has had multiple visitors today.
--- NOTE | 2023-02-04 22:07 | PC.NURSE ---
Pt with family at bedside at start of shift. Family very supportive. Pt refused T&R and pain meds. Stated she was comfortable as is and didnt want to change.
[2023-02-04 23:00] VITALS: O2SAT 91
--- NOTE | 2023-02-05 06:19 | PC.NURSE ---
Patient slept throughout this shift, declined repositioning. Bajwa catheter patent draining dark caitlyn urine with strong odor. Denied any discomfort, appeared comfortable.
[2023-02-05 07:00] VITALS: RESP 28; O2SAT 89
[2023-02-05 08:00] VITALS: RESP 28
[2023-02-05] MEDS: MORPHINE 10 MG/0.5 ML ORAL SOLN PO ×2 (09:01→10:01)
--- NOTE | 2023-02-05 09:35 | PC.SOCIAL ---
Discharge planning: Completed and submitted PAS #[id number].
--- NOTE | 2023-02-10 11:18 | P.DS_ITS ---
DS: Providers Provider Time Seen by Provider: 09:00 Date Seen: 02/05/23 Date of admission: 02/02/23 10:20 Primary care physician: Cheryl Harrison MD Admitting Clinician: Oral López MD Consults: 01/28/23 16:42 Consult to Client Service Consultant [CONS] Routine Comment: Reason for Consult:: Social Service Consult Attending Physician on discharge: Jacky Tan MD Date of Discharge: 02/05/23 DS: Diagnosis Discharge Diagnosis (1) Squamous cell carcinoma of left lung: Status: Acute Problem details: Stage IV. Disease progressive despite treatment efforts. Patient requests comfort focus treatment it is at this time with DNR DNI resuscitation status. She declines any additional disease directed diagnostic or interventional efforts. (2) Bone metastases: Status: Acute Problem details: Working to control pain and achieving this. (3) Metastasis to lymph nodes: Status: Acute (4) Liver metastases: Status: Acute (5) Cancer associated pain: Status: Resolved Problem details: Pain management efforts more successful now. (6) Moderate COPD (chronic obstructive pulmonary disease): Status: Chronic Problem details: saw pie chef Dr Carlson 07/2018 (7) Terminal care: Status: Acute DS: Summary Hospital Course Hospital Course: 67-year-old woman with stage IV squamous cell carcinoma of the lung no longer responsive to intervention efforts, with patient now desiring comfort focus treatments only with DNR DNI resuscitation status, declining any additional disease directed diagnostic or interventional efforts. Admitted for pain management and establishment of safe disposition plan for her. Eventually found a [facility] facility for her with [facility] hospice support. Status at Discharge Functional status at discharge: bed bound Overall status at discharge: patient is not back to baseline Time Spent with Patient Time attestation: Total time spent providing and/or coordinating discharge services: Time spent: Greater than 30 minutes Exam Narrative: Exam Narrative: Examined patient in her hospital bed. She appears comfortable. No acute distress. Lays still in great measure. Lungs clear to auscultation. Heart tones regular. Abdomen benign. DS: Data Imaging CT scan - chest: Attestation: I have reviewed the pertinent imaging results. Radiologist's impression: Findings: Destructive changes involving C7 on the left are again noted. There is a new area of lysis within the right 2nd rib laterally measuring 1.2 cm. A healing left lateral 6th rib fracture is present. Fracture deformity of the left posterior lateral 8th rib noted. This is unchanged. The sternum is intact. Metastatic foci within several thoracic vertebral bodies are again noted including T1, T4 T7, T8, T9 and the L1/2 vertebral bodies. Similar mildly prominent mediastinal lymph nodes when compared to the prior CT-PET scan. Old granulomatous changes noted. Left perihilar lung mass is similar to the CT pad and measures approximately 4.8 by 3.5 cm. However, there is a new nodule within the left upper lobe measuring 8 millimeters, . An additional new nodule is present within the left upper lobe posteriorly measuring 1.6 cm, . Finally, increased size of nodule left upper lobe measuring 1.2 cm, . Underlying COPD/emphysema. No pleural effusion. The breast tissue appears normal. No thyroid lesion. Gallbladder absent. Metastatic lesions within the liver are possibly more conspicuous. Intrahepatic lesions measure 2.4 cm within the inferior right hepatic lobe and 1.6 cm within the periphery of the right hepatic lobe. Additional smaller densities within the left hepatic lobe are noted measuring 5 millimeters and within the right hepatic lobe inferiorly measuring 9 millimeters. Impression: Similar left perihilar mass. Additional new/enlarging nodules within the left upper lobe are present which measure up to 1.6 cm. Persistent mediastinal and left hilar adenopathy which is probably similar to the recent CT PET scan. Multifocal metastatic foci throughout the skeletal system. Possible new lesion within the right 2nd rib. Subacute left-sided rib fractures. There is no anterior rib fracture to explain the current symptoms. Possible mild increased conspicuity of the known intrahepatic metastatic lesions which measure up to 2.4 cm. Left lower extremity duplex venous ultrasound: Radiologist's impression: IMPRESSION: No evidence of deep vein thrombosis within the left lower extremity. Discharge Plan Discharge Disposition: Xfer Home- (Hospice) Date of Admission: 02/02/23 10:20 Attending Provider on Discharge: Jacky Tan Primary Care Provider: Cheryl Harrison Condition: Unchanged Anticipated Discharge Date/Time: 02/05/23 10:00 Discharge Medications: New acetaminophen 325 mg Tablet 650 mg PO Q6H PRN30 Days Qty: 100 0RF prochlorperazine maleate 10 mg Tablet 5 - 10 mg PO Q6H PRN15 Days Qty: 10 0RF hyoscyamine sulfate 0.125 mg Tablet,Disintegrating 0.125 - 0.25 mg sublingual Q4H PRN (Reason: To decrease secretions) 15 Days Qty: 30 0RF ondansetron 4 mg Tablet,Disintegrating 8 mg PO Q4H PRN (Reason: nausea/vomiting) 15 Days Qty: 15 0RF oxycodone 5 mg Tablet 5 - 15 mg PO Q1H PRN (Reason: Pain) 15 Days Qty: 30 0RF Continued diphenhydramine HCl [Benadryl] 25 mg capsule 25 mg PO TID PRN cetirizine 10 mg tablet 10 mg PO DAILY sennosides [Senna Lax] 8.6 mg tablet 8.6 mg PO BID PRN albuterol sulfate 90 mcg/actuation HFA aerosol inhaler 2 puff inhalation Q4H PRN (Reason: shortness of breath or wheezing) sertraline 50 mg tablet 50 mg PO DAILY Trelegy Ellipta 100-62.5-25 mcg blister with device 1 inh inhalation DAILY Qty: 60 5RF Discontinued ondansetron HCl 8 mg tablet 8 mg PO Q8H PRN (Reason: nausea and vomiting) Qty: 40 1RF Rx Instructions: Take for chemo-related nausea starting 24 hours after chemo, if prochlorperazine (compazine) ineffective. famotidine [Pepcid] 20 mg tablet 20 mg PO DAILY PRN oxycodone 5 mg capsule 2.5 mg PO Q6H PRN Calcium 600 with Vitamin D3 600 mg-10 mcg (400 unit) tablet,chewable 1 tab PO BIDWMEAL Qty: 100 0RF fluticasone propionate 50 mcg/actuation spray,suspension 1 spray intranasal DAILY PRN multivitamin Tablet 1 tab PO DAILY prochlorperazine maleate 10 mg tablet 10 mg PO Q6H PRN naproxen sodium [Aleve] 220 mg capsule 220 mg PO BID PRN acetaminophen [Tylenol Extra Strength] 500 mg tablet 500 - 1,000 mg PO Q6H PRN loperamide [Imodium A-D] 2 mg capsule 2 - 4 mg PO Q6H PRN Patient Comments: oxycodone 5 mg tablet 2.5 mg PO Q6H PRN (Reason: pain) sertraline 25 mg tablet 50 mg PO QDAY Qty: 180 0RF Discharge Orders: Discharge Order (Routine); Ordered 02/05/23 Ordered By: Jacky Tan Additional Instructions: 1. Hospice referral for comfort focus treatments with DNR/DNI resuscitation status, Dx: stage IV pulmonary squamous cell carcinoma no longer responsive to palliative oncological treatments. Activity Level: Activity as Tolerated Discharge Diet: Regular Follow Up Appointments: [facility] [Outside] (Patient being discharged to [facility] Cheryl Harrison MD [Primary Care Provider] - Forms: [employer] Info Instructions
== END 2023-02-05 10:40 | disposition hospice, home (50) | DRG 181 ==
LOC: ED 15:44 → MEDSURG 16:17
PROVIDERS: Admitting Provider Internal Medicine; Emergency Provider Emergency Medicine Emergency Medical Services; PCP Family Medicine; Visit Provider Hospitalist
DX: C34.12 Malignant neoplasm of upper lobe, left bronchus or lung (principal); C77.1 Secondary and unspecified malignant neoplasm of intrathoracic lymph nodes; C78.7 Secondary malignant neoplasm of liver and intrahepatic bile duct; C79.51 Secondary malignant neoplasm of bone; G89.3 Neoplasm related pain (acute) (chronic); J44.9 Chronic obstructive pulmonary disease, unspecified; R53.1 Weakness; I69.319 Unspecified symptoms and signs involving cognitive functions following cerebral infarction; F32.A Depression, unspecified; G47.00 Insomnia, unspecified; Z98.2 Presence of cerebrospinal fluid drainage device
CPT/HCPCS: 51798; 99284; A9270; G0378; J0780; J1200; J2405; J7120; S5010

== ENCOUNTER 2023-02-05 10:42 | Outpatient (CLI) | payer MEDICARE, SELFPAY | END 2023-02-05 10:43 | disposition home or self-care (01) | LOC: AMB 02-17 09:21 | PROVIDERS: PCP Family Medicine; Visit Provider Family Medicine | DX: C34.92 Malignant neoplasm of unspecified part of left bronchus or lung (principal); R53.1 Weakness | CPT/HCPCS: A0425; A0428 ==